=== PATIENT | male | born 1975 | race Caucasian/White ===

== ENCOUNTER 2018-03-28 15:21 | Outpatient (REF) | payer MEDICAID, SELFPAY ==
[2018-03-28 18:32] LABS: Anion Gap 11.8 mmol/L (3-11); BUN 13 mg/dL (7-18); CO2 29.2 mmol/L (21.0-32.0); CREATININE 0.93 mg/dL (0.70-1.30); Calcium 10.2 mg/dL (8.5-10.1); Chloride 100 mmol/L (98-107); Glucose 165 mg/dL (70-100); Potassium 3.2 mmol/L (3.5-5.1); Sodium 141 mmol/L (136-145)
== END 2018-03-28 15:41 ==
LOC: NCHCN 15:21
PROVIDERS: PCP Family Medicine; Visit Provider Family Medicine
DX: I10 Essential (primary) hypertension (principal)
CPT/HCPCS: 80048

== ENCOUNTER 2018-04-10 02:23 | Outpatient (CLI) | payer MEDICAID, SELFPAY ==
--- NOTE | 2018-04-10 21:37 | PFT_ITS ---
DATE OF SERVICE: 04/10/18 REQUESTING PROVIDER: Jose Clement M.D. Spirometry shows no evidence of obstructive airways disease. No bronchodilator testing was carried out. Lung volumes show no evidence of restriction. Diffusion capacity mildly elevated, even when corrected to alveolar volume. Airways resistance normal. IMPRESSION: While there is no evidence of obstructive airways disease, no bronchodilator testing was carried out. There is also elevated diffusion capacity which can be seen in asthma. Therefore, if the diagnosis of asthma is in question, proceeding with methylcholine challenge testing may prove to be useful. Clinical correlation recommended.
== END 2018-04-10 02:43 ==
PROVIDERS: PCP Family Medicine; Visit Provider Family Medicine
DX: R06.02 Shortness of breath (principal)
CPT/HCPCS: 94150; 94726; 94729; 94010

== ENCOUNTER 2018-04-12 09:34 | Outpatient (REF) | payer MEDICAID, SELFPAY ==
[2018-04-12 13:42] LABS: ALT 42 U/L (12-78); AST 29 U/L (15-37); Albumin 4.4 g/dL (3.4-5.0); Alkaline Phosphatase 90 U/L (46-116); BUN 12 mg/dL (7-18); Bilirubin, Total 0.8 mg/dL (0.2-1.0); CREATININE 0.95 mg/dL (0.70-1.30); Calcium 9.6 mg/dL (8.5-10.1); Chloride 103 mmol/L (98-107); Glucose 87 mg/dL (70-100); Potassium 4.4 mmol/L (3.5-5.1); Sodium 141 mmol/L (136-145); Total Protein 7.7 g/dL (6.4-8.2)
== END 2018-04-12 09:54 ==
LOC: NCHCN 09:34
PROVIDERS: PCP Family Medicine; Visit Provider Family Medicine
DX: E87.6 Hypokalemia (principal); E83.52 Hypercalcemia
CPT/HCPCS: 80053

== ENCOUNTER 2018-11-18 19:18 | Emergency (ER) | payer MEDICAID, SELFPAY ==
[2018-11-18 19:46] VITALS: BP 149/97; PULSE 72; RESP 14; TEMP 36.5; O2SAT 98
--- NOTE | 2018-11-18 20:47 | ED.GENADUL_ITS ---
Discharge Plan Disposition Patient Disposition: HOME Condition: Stable Discharge Details Chief Complaint: Orthopedic Clinical Impression: Hematoma Primary Care Provider: Jose Clement ED Provider: Kvng Bernard Home Meds and New Rx's Prescriptions: No Action omeprazole 40 MG capsule,delayed release(DR/EC) 20 mg PO DAILY RF: 0 fenofibrate nanocrystallized [Tricor] 48 MG tablet 48 mg PO DAILY RF: 0 Fish Oil 1 EACH capsule 1 tab PO DAILY RF: 0 simvastatin 10 MG tablet 10 mg PO DAILY RF: 0 venlafaxine 150 MG capsule,extended release 24hr 150 mg PO BID RF: 0 nortriptyline 10 MG capsule 10 mg PO HS RF: 0 lisinopril 40 MG tablet 40 mg PO DAILY RF: 0 docusate sodium 100 MG capsule 100 mg PO BID Qty: 10 RF: 0 Discharge Instructions Instructions: Hematoma (ED) Additional Instructions: Please use Roldan wrap to provide pressure on left calf. Continue to monitor your symptoms return immediately for any new or worsening signs or symptoms otherwise follow-up with your primary care provider next week for reassessment. Referrals: Jose Clement [Primary Care Provider] - (As needed for reassessment or if not improving) Discharge Data Discharge Date/Time-TO BE ENTERED AT DEPARTURE: 11/18/18 21:45 Medical Decision Making Patient presenting the emergency department for chief complaint of right calf bruising. Patient states 1 week ago he was bent over while stacking wood he thought something bit his calf. Afterwards he noted some bruising that is continued over the past week. Patient denies any chest pain, shortness of breath, fever chills, or other symptoms. Physical exam shows significant br uising and superficial abnormality to the right medial calf. Bedside ultrasound was utilized to visualized venous structures and there is no areas that do not compress but in surrounding area of ecchymosis there is a hematoma noted right next to the associated superficial vein but again no thrombosis is seen within the venous structure and good blood flow is noted. Exam is otherwise unremarkable. I feel more than likely that patient had either minor occult injury or slight structural tear causing hematoma is causing his symptoms. Leg was wrapped in an Roldan wrap and patient was encouraged to use [id number] pain therapy as needed for discomfort. Patient was offered official ultrasound on Tuesday for full definitive examination but at this time he refused and stated he would follow-up with his primary care provider which I feel is appropriate given no obvious signs of DVT on bedside ultrasound. Close return precautions were discussed. After discussion of diagnosis and plan of care patient has no further needs, questions, or concerns and states clear understanding to return to the emergency department for any worsening symptoms. HPI General Mode of arrival: ambulatory . Date/Time Provider Initiated Documentation: 11/18/18 19:50 . Limitations to Documentation: no limitations . Information obtained by: patient . History of Present Illness 43 year old M presents to the emergency department with the chief complaint of right calf pain, described as mild, with intensity rated at 2. Quality is described as aching, and is localized to the right and lower extremity. Patient started experiencing this week(s) (1) and it has been constant. No relieving factors improve symptom(s), No exacerbating factors reported . Patient notes no other symptoms.. Patient did receive the following treatments prior to arrival, none Related Data Home Medications Medication Instructions Recorded Confirmed Fish Oil 1 tab PO DAILY 05/30/14 11/18/18 fenofibrate nanocrystallized 48 mg PO DAILY 05/30/14 11/18/18 [Tricor] omeprazole 20 mg PO DAILY 05/30/14 11/18/18 docusate sodium 100 mg PO BID #10 capsule 05/31/14 11/18/18 lisinopril 40 mg PO DAILY 05/31/14 11/18/18 nortriptyline 10 mg PO HS 05/31/14 11/18/18 simvastatin 10 mg PO DAILY 05/31/14 11/18/18 venlafaxine 150 mg PO BID 05/31/14 11/18/18 Previous Rx's Medication Instructions Recorded docusate sodium 100 mg PO BID #10 capsule 05/31/14 Allergies Allergy/AdvReac Type Severity Reaction Status Date / Time Penicillins Allergy Unverified 11/18/18 19:52 General Stated Complaint: Orthopedic GABBY: 3 Review of Systems Constitutional Constitutional: Denies chills, Denies fever(s) and Denies headache(s) ENT Ears, Nose, Mouth, and Throat: Denies headache(s) Cardiovascular Cardiovascular: Denies chest pain, Denies irregular heart rhythm, Denies claudication, Denies leg edema and Denies dyspnea Respiratory Respiratory: Denies dyspnea Musculoskeletal Musculoskeletal: Reports as per HPI Neurologic Neurologic: Denies headache(s) and Denies sensory deficit [facility] Surgical History Bilateral Ureter reimplantation Colonoscopy - MAC (07/14/16) EGD - MAC (07/14/16) Spinal Fusion Social History Smoking/Tobacco Use Status: Never Alcohol Intake: current Alcohol Intake frequency: a few times a month Drug use: Never Substance use type: does not use Do you feel safe at home: Yes Do you feel safe in your relationship?: Yes Exam Const General: cooperative, healthy appearing, comfortable and no acute distress Orientation: alert, awake and oriented x3 Resp Effort & Inspection: normal respiratory effort and able to speak in complete sentences Cardio Rate: regular rate Rhythm: regular rhythm Pulses: normal peripheral pulses Neuro General: alert, awake, oriented x3, moves all extremities and no focal motor deficits Extrem General: full ROM, normal capillary refill, normal exam except as noted and no joint enlargement Right lower extremity: lower leg Details: ecchymosis mid lower leg medial Details: single; no tenderness, no palpable cords, edema noted, no abrasions and no lacerations Course Vital Signs Vital signs: Vital Signs Temperature 36.5 C 11/18/18 19:46 Pulse 72 11/18/18 19:46 Respiratory Rate 14 11/18/18 19:46 Blood Pressure 149/97 H 11/18/18 19:46 Pulse Oximetry 98 11/18/18 19:46 Temperature 36.5 C 11/18/18 19:46 Temperature Source Tympanic 11/18/18 19:46 Pulse 72 11/18/18 19:46 Respiratory Rate 14 11/18/18 19:46 Respiratory Effort Non-Labored 11/18/18 19:53 Blood Pressure 149/97 H 11/18/18 19:46 Pulse Oximetry 98 11/18/18 19:46 Oxygen Delivery Method Room Air 11/18/18 19:46 Oxygen Flow Rate 0 11/18/18 19:46 Pain Level 2 11/18/18 19:53
[2018-11-18 21:17] VITALS: BP 149/97; PULSE 72; RESP 14; O2SAT 98
== END 2018-11-18 21:45 | disposition home or self-care (01) ==
PROVIDERS: Emergency Provider Nurse Practitioner Family; PCP Family Medicine
DX: S80.12XA Contusion of left lower leg, initial encounter (principal); X58.XXXA Exposure to other specified factors, initial encounter
CPT/HCPCS: 99282

== ENCOUNTER 2019-02-27 17:05 | Emergency (ER) | payer MEDICAID, SELFPAY ==
[2019-02-27 17:09] VITALS: BP 148/78; PULSE 87; TEMP 36.6; O2SAT 97
--- NOTE | 2019-02-27 17:20 | W.ED.GENAD ---
Discharge Plan Disposition Patient Disposition: HOME Condition: Good Discharge Details Chief Complaint: RespSymp Clinical Impression: Pneumonia, Asthma exacerbation Primary Care Provider: Jose Clement ED Provider: Silvina Benson Home Meds and New Rx's Prescriptions: New doxycycline hyclate 100 mg capsule 100 mg PO BID 7 Days Qty: 14 RF: 0 prednisone 50 mg tablet 50 mg PO DAILY 5 Days Qty: 5 RF: 0 albuterol sulfate 90 mcg/actuation HFA aerosol inhaler 2 puff IH Q6H PRN (Reason: shortness of breath or wheezing) Qty: 6.7 RF: 0 Continued omeprazole 40 MG capsule,delayed release(DR/EC) 20 mg PO DAILY RF: 0 fenofibrate nanocrystallized [Tricor] 48 MG tablet 48 mg PO DAILY RF: 0 Fish Oil 1 EACH capsule 1 tab PO DAILY RF: 0 simvastatin 10 MG tablet 10 mg PO DAILY RF: 0 venlafaxine 150 MG capsule,extended release 24hr 150 mg PO BID RF: 0 nortriptyline 10 MG capsule 10 mg PO HS RF: 0 lisinopril 40 MG tablet 40 mg PO DAILY RF: 0 docusate sodium 100 MG capsule 100 mg PO BID Qty: 10 RF: 0 Discharge Instructions Instructions: Asthma (ED), Pneumonia (ED) Additional Instructions: Encourage water intake. Tylenol and/or Ibuprofen as needed for discomfort. Please take the antibiotics as prescribed (doxycycline), even if symptoms improve please take the entire course. Please take the prednisone daily as prescribed. Albuterol inhaler as needed, please use as you have historically. If you develop fevers/chills, difficulty breathing, shortness of breath or other new/worsening symptoms please seek care urgently once again. Otherwise, please follow up with primary care at the end of the week if not completely improved. Referrals: Jose Clement [Primary Care Provider] - Discharge Data Discharge Date/Time-TO BE ENTERED AT DEPARTURE: 02/27/19 18:25 Medical Decision Making Patient is a 43 year old male with hx of asthma, presenting today with c/c of cough and SOB x 1 week. States that started as a basic cold and that cough has progressively worsened. Denies ear pain, endorses nasal congestion, chest congestion, sore throat. No fevers/chills .Has been responding well to inhaler. Denies CP. No GI upset. On exam, patient is resting comfortably. Oxygenating well, no labored breathing. Patient has expiratory wheezes in BUL. Course in RLL, concerned for pneumonia. Will obtain cxr. FINDINGS: Lungs: The lung volumes are low. No consolidation. Pleural space: Unremarkable. No pleural effusion. No pneumothorax. Heart/Mediastinum: Unremarkable. No cardiomegaly. Bones/joints: Unremarkable. IMPRESSION: Low lung volumes without evidence of pneumonia. Discussed these findings with the patient. Despite the normal chest x-ray, I remain concerned for pneumonia based on clinical exam findings and worsening history. Plan to treat with doxycycline. As he was wheezing has been experiencing increase in his asthma symptoms, will also place the patient on oral prednisone. He was given return precautions. Advise follow-up with primary care get of the week. All questions concerns were addressed and is agreement this plan. HPI General Mode of arrival: ambulatory. Date/Time Provider Initiated Documentation: 02/27/19 17:19. Limitations to Documentation: no limitations. Information obtained by: patient and RN notes reviewed. History of Present Illness 43 year old M presents to the emergency department with the chief complaint of cough, SOB x 1 week, described as moderate, with intensity rated at 1 (no pain). Patient started experiencing this week(s) (1) and it has been constant. No relieving factors improve symptom(s), Other factors that worsen symptoms (going into the cold) . Patient notes cough and shortness of breath; denies chest pain, diaphoresis, fever/chills, headaches, nausea/vomiting, rash and weakness. Patient did receive the following treatments prior to arrival, none Related Data Home Medications Medication Instructions Recorded Confirmed Fish Oil 1 tab PO DAILY 05/30/14 02/27/19 fenofibrate nanocrystallized 48 mg PO DAILY 05/30/14 02/27/19 [Tricor] omeprazole 20 mg PO DAILY 05/30/14 02/27/19 docusate sodium 100 mg PO BID #10 capsule 05/31/14 02/27/19 lisinopril 40 mg PO DAILY 05/31/14 02/27/19 nortriptyline 10 mg PO HS 05/31/14 02/27/19 simvastatin 10 mg PO DAILY 05/31/14 02/27/19 venlafaxine 150 mg PO BID 05/31/14 02/27/19 albuterol sulfate 2 puff IH Q6H PRN #6.7 gm 02/27/19 doxycycline hyclate 100 mg PO BID 7 Days #14 cap 02/27/19 prednisone 50 mg PO DAILY 5 Days #5 tab 02/27/19 Previous Rx's Medication Instructions Recorded docusate sodium 100 mg PO BID #10 capsule 05/31/14 albuterol sulfate 2 puff IH Q6H PRN #6.7 gm 02/27/19 doxycycline hyclate 100 mg PO BID 7 Days #14 cap 02/27/19 prednisone 50 mg PO DAILY 5 Days #5 tab 02/27/19 Allergies Allergy/AdvReac Type Severity Reaction Status Date / Time Penicillins Allergy Unverified 02/27/19 17:15 General Stated Complaint: RespSymp GABBY: 4 Review of Systems Constitutional Constitutional: Reports as per HPI, Denies chills, Reports fatigue, Denies fever(s), Denies headache(s) and Denies poor appetite Eyes Eyes: Reports as per HPI, Denies eye discharge and Denies irritation ENT Ears, Nose, Mouth, and Throat: Reports as per HPI and Denies headache(s) Cardiovascular Cardiovascular: Reports as per HPI, Denies chest pain and Reports dyspnea (with cough, reports feels similar to asthma exacerbation in the past) Respiratory Respiratory: Reports as per HPI, Reports chest congestion, Reports cough, Denies hemoptysis, Denies excessive phlegm production, Denies pain on inspiration, Denies pain with cough, Reports dyspnea (with cough, reports feels similar to asthma exacerbation in the past) and Reports wheezing Gastrointestinal Gastrointestinal: Reports as per HPI, Denies abdominal pain, Denies change in bowel habits, Denies nausea and Denies vomiting Integumentary/Breasts Skin/Breast: Reports as per HPI and Denies rash Neurologic Neurologic: Reports as per HPI and Denies headache(s) Endocrine Endocrine: Reports fatigue Allergic/Immunologic Allergic/Immunologic: Reports wheezing PFSH Surgical History Bilateral Ureter reimplantation Colonoscopy - MAC (07/14/16) EGD - MAC (07/14/16) Spinal Fusion Social History Smoking/Tobacco Use Status: Never Alcohol Intake: current Alcohol Intake frequency: a few times a month Drug use: Never Substance use type: does not use Do you feel safe at home: Yes Do you feel safe in your relationship?: Yes Exam Const General: cooperative, healthy appearing, comfortable, no acute distress, well developed and well groomed Nutritional Appearance: average body habitus and well nourished Orientation: alert and awake [facility] Head: normal to inspection, normocephalic and atraumatic Ears: hearing grossly normal bilaterally, external ears normal and TM's normal bilaterally General nose exam: external nose normal and nares normal Face and sinus: normal facial exam, sinuses nontender and face symmetric Mouth: oral mucosae normal, lip normal, tongue normal, oropharynx normal and moist mucous membranes Teeth and gingiva: dentition normal Throat: posterior oropharynx normal, tonsils normal and uvula midline Eyes General: appearance normal, both eyes and all related structures Neck Neck: normal visual inspection, full ROM, no lymphadenopathy and no meningeal signs Resp Effort & Inspection: normal respiratory effort, able to speak in complete sentences and no respiratory distress Auscultation: crackles (RLL), no rales, no rhonchi and wheezes expiratory wheezes and scattered wheezes Cardio Rate: regular rate Rhythm: regular rhythm Heart Sounds: S1 normal and S2 normal Skin General skin exam: no rashes or lesions noted Neuro General: alert and awake Cognition: normal cognition Speech: speech normal Gait: normal gait Psych Appearance: grossly normal and well kempt Mental Status: mental status grossly normal Speech and Movement: speech and movement normal Course Vital Signs Vital signs: Vital Signs Temperature 36.6 C 02/27/19 17:09 Pulse 87 02/27/19 17:09 Blood Pressure 148/78 H 02/27/19 17:09 Pulse Oximetry 97 02/27/19 17:09 Temperature 36.6 C 02/27/19 17:09 Temperature Source Skin 02/27/19 17:09 Pulse 87 02/27/19 17:09 Blood Pressure 148/78 H 02/27/19 17:09 Blood Pressure Position Sitting 02/27/19 17:09 Pulse Oximetry 97 02/27/19 17:09 Oxygen Delivery Method Room Air 02/27/19 17:09 Oxygen Flow Rate 0 02/27/19 17:09
--- NOTE | 2019-02-27 17:55 | DI.RAD_ITS ---
EXAM: XR CHEST 2V PA LATERAL INDICATION: SOB, cough. COMPARISON: ABD FLAT UPRIGHT PA CHEST from 05/30/2014 TECHNIQUE: 2D digital imaging was performed. FINDINGS: There is poor inspiration. Heart size and pulmonary vasculature are within normal limits. The lungs are clear. No pleural effusion or pneumothorax. Bones are unremarkable. IMPRESSION: No acute pulmonary process.
--- NOTE | 2019-02-27 18:15 | DI.VRAD_ITS ---
PROCEDURE INFORMATION: Exam: XR Chest, 2 Views Exam date and time: 02/27/2019 5:20 PM Age: 43 years old Clinical indication: Cough and shortness of breath TECHNIQUE: Imaging protocol: XR of the chest Views: 2 views. COMPARISON: CR ABD FLAT UPRIGHT PA CHEST 05/30/2014 9:10 PM FINDINGS: Lungs: The lung volumes are low. No consolidation. Pleural space: Unremarkable. No pleural effusion. No pneumothorax. Heart/Mediastinum: Unremarkable. No cardiomegaly. Bones/joints: Unremarkable. IMPRESSION: Low lung volumes without evidence of pneumonia. Dictated and Authenticated by: Terrie Pedroza MD. Ordering:MOIRA Cool MD
== END 2019-02-27 18:25 | disposition home or self-care (01) ==
PROVIDERS: Emergency Provider Physician Assistant; PCP Family Medicine
DX: J45.901 Unspecified asthma with (acute) exacerbation (principal); J18.9 Pneumonia, unspecified organism; J02.9 Acute pharyngitis, unspecified
CPT/HCPCS: 99283; 71046; 99284

== ENCOUNTER 2019-06-22 07:16 | Outpatient (CLI) | payer MEDICAID, SELFPAY ==
[2019-06-22 16:12] LABS: BUN 11 mg/dL (7-18); CREATININE 0.86 mg/dL (0.70-1.30); Calcium 9.1 mg/dL (8.5-10.1); Chloride 102 mmol/L (98-107); Glucose 140 mg/dL (74-106); Potassium 3.9 mmol/L (3.5-5.1); Sodium 138 mmol/L (136-145)
[2019-06-27 03:16] LABS: Testosterone, Total 313 ng/dL (240-950)
== END 2019-06-22 07:36 ==
PROVIDERS: PCP Family Medicine; Visit Provider Family Medicine
DX: I10 Essential (primary) hypertension (principal); N52.9 Male erectile dysfunction, unspecified; F33.1 Major depressive disorder, recurrent, moderate
CPT/HCPCS: 36415; 80048; 84403

== ENCOUNTER 2019-11-26 17:41 | Outpatient (REF) | payer MEDICAID, SELFPAY ==
[2019-11-26 18:35] LABS: HCT 44.2 % (40.0-50.0); HGB 15.5 g/dL (13.5-17.5); MCH 28.8 pg (27.0-33.0); MCHC 35.1 % (32.0-36.0); MPV 11.2 fL (8.0-11.0); Platelet Count 285 10^3/uL (130-400); RBC 5.39 10^6/uL (4.36-5.78); RDW 12.2 % (11.8-14.1); RDW-SD 36.2 fL; WBC 8.47 10^3/uL (4.4-10.8)
[2019-11-26 19:11] LABS: Anion Gap 12.4 mmol/L (3-11); BUN 17 mg/dL (7-18); CO2 26.6 mmol/L (21.0-32.0); CREATININE 1.08 mg/dL (0.70-1.30); Calcium 9.9 mg/dL (8.5-10.1); Chloride 101 mmol/L (98-107); Glucose 93 mg/dL (74-106); Potassium 3.5 mmol/L (3.5-5.1); Sodium 140 mmol/L (136-145); TSH (W/Ref FT4) 1.73 uIU/mL (0.36-3.74); Vitamin B12 330 pg/mL (193-986)
== END 2019-11-26 18:01 ==
LOC: NCHCN 17:41
PROVIDERS: PCP Family Medicine; Visit Provider Family Medicine
DX: F33.1 Major depressive disorder, recurrent, moderate (principal); I10 Essential (primary) hypertension; K29.70 Gastritis, unspecified, without bleeding
CPT/HCPCS: 80048; 85027; 82607; 84443

== ENCOUNTER 2020-03-14 08:46 | Emergency (ER) | payer MEDICAID, SELFPAY ==
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
[2020-03-14 08:49] VITALS: BP 147/96; PULSE 109; RESP 20; TEMP 36.6; O2SAT 98
--- NOTE | 2020-03-14 09:17 | DI.RAD_ITS ---
EXAM: XR ELBOW RT COMPLETE CLINICAL HISTORY: old trauma with persist decreased ROM. TECHNIQUE: 2D digital imaging was performed. COMPARISON: No exams were available for comparison FINDINGS: There no obvious acute fracture lines. However, on the lateral view we note a 10 by 4 millimeter ost eophytic density in the joint cavity anterior to distal humerus. No obvious defect in adjacent paren t bones evident on these 3 images. Radial head appears intact. No obvious osteochondral defects. IMPRESSION: Loose intra-articular body as described above. No obvious acute fracture. DATA REPOSITORY: RADIATION DOSE DELIVERED:
== END 2020-03-14 10:09 | disposition home or self-care (01) ==
LOC: ER 10:05
PROVIDERS: Emergency Provider Physician Assistant; PCP Family Medicine
DX: M77.01 Medial epicondylitis, right elbow (principal); I10 Essential (primary) hypertension
CPT/HCPCS: 90471; 99284; 73080

== ENCOUNTER 2020-06-02 19:09 | Outpatient (REF) | payer MEDICAID, SELFPAY ==
[2020-06-02 18:08] LABS: HCT 44.7 % (40.0-50.0); HGB 15.4 g/dL (13.5-17.5); MCH 28.6 pg (27.0-33.0); MCHC 34.5 % (32.0-36.0); MCV 83.1 fL (80-95); MPV 11.9 fL (8.0-11.0); Platelet Count 271 10^3/uL (130-400); RBC 5.38 10^6/uL (4.36-5.78); RDW 12.4 % (11.8-14.1); RDW-SD 37.4 fL; WBC 7.56 10^3/uL (4.4-10.8)
[2020-06-02 18:29] LABS: ALT 42 U/L (16-63); AST 24 U/L (15-37); Albumin 4.5 g/dL (3.4-5.0); Alkaline Phosphatase 91 U/L (46-116); Anion Gap 11.9 mmol/L (3-11); BUN 12 mg/dL (7-18); Bilirubin, Total 0.4 mg/dL (0.2-1.0); CO2 26.1 mmol/L (21.0-32.0); CREATININE 1.2 mg/dL (0.70-1.30); Calcium 9.9 mg/dL (8.5-10.1); Chloride 105 mmol/L (98-107); Glucose 123 mg/dL (74-106); Potassium 3.2 mmol/L (3.5-5.1); Sodium 143 mmol/L (136-145)
[2020-06-04 09:54] LABS: Hepatitis C Ab w Rflx HCV PCR Negative (Negative)
== END 2020-06-02 19:10 | disposition home or self-care (01) ==
LOC: NCHCN 19:09
PROVIDERS: PCP Family Medicine; Visit Provider Family Medicine
DX: F10.10 Alcohol abuse, uncomplicated (principal); Z11.59 Encounter for screening for other viral diseases
CPT/HCPCS: 80053; 85027; 86803

== ENCOUNTER 2020-09-01 18:28 | Outpatient (REF) | payer MEDICAID, SELFPAY ==
[2020-09-01 20:58] LABS: Anion Gap 11.9 mmol/L (3-11); BUN 10 mg/dL (7-18); CO2 26.1 mmol/L (21.0-32.0); CREATININE 1.1 mg/dL (0.70-1.30); Calcium 9.8 mg/dL (8.5-10.1); Chloride 101 mmol/L (98-107); Glucose 169 mg/dL (74-106); Magnesium 1.8 mg/dL (1.8-2.4); Potassium 3.4 mmol/L (3.5-5.1); Sodium 139 mmol/L (136-145)
== END 2020-09-01 18:29 | disposition home or self-care (01) ==
LOC: NCHCN 18:28
PROVIDERS: PCP Family Medicine; Visit Provider Family Medicine
DX: E87.6 Hypokalemia (principal)
CPT/HCPCS: 80048; 83735

== ENCOUNTER 2020-09-03 12:11 | Outpatient (REF) | payer MEDICAID, SELFPAY ==
[2020-09-03 16:08] LABS: Anion Gap 11.5 mmol/L (3-11); BUN 14 mg/dL (7-18); CO2 26.5 mmol/L (21.0-32.0); CREATININE 1.2 mg/dL (0.70-1.30); Calcium 9.7 mg/dL (8.5-10.1); Chloride 105 mmol/L (98-107); Glucose 119 mg/dL (74-106); Magnesium 1.9 mg/dL (1.8-2.4); Potassium 3.3 mmol/L (3.5-5.1); Sodium 143 mmol/L (136-145)
[2020-09-05 13:56] LABS: COVID-19 RT-PCR UVMMC Result Negative (Negative)
== END 2020-09-03 12:12 | disposition home or self-care (01) ==
LOC: LBN 12:11
PROVIDERS: PCP Family Medicine; Visit Provider Physician Assistant Medical
DX: R10.9 Unspecified abdominal pain (principal); E87.6 Hypokalemia; J06.9 Acute upper respiratory infection, unspecified; Z20.822 Contact with and (suspected) exposure to COVID-19; R82.998 Other abnormal findings in urine
CPT/HCPCS: 80048; U0003; 83735; 87086

== ENCOUNTER 2021-05-19 15:02 | Outpatient (REF) | payer MEDICAID, SELFPAY ==
[2021-05-19 16:41] LABS: HCT 43.4 % (40.0-50.0); HGB 14.8 g/dL (13.5-17.5); MCH 26.8 pg (27.0-33.0); MCHC 34.1 % (32.0-36.0); MCV 78.6 fL (80-95); MPV 11.4 fL (8.0-11.0); Platelet Count 361 10^3/uL (130-400); RBC 5.52 10^6/uL (4.36-5.78); RDW 13.3 % (11.8-14.1); RDW-SD 37.6 fL
[2021-05-19 17:01] LABS: ALT 24 U/L (16-63); AST 16 U/L (15-37); Albumin 4.4 g/dL (3.4-5.0); Alkaline Phosphatase 129 U/L (46-116); Anion Gap 12.3 mmol/L (3-11); BUN 18 mg/dL (7-18); Bilirubin, Total 0.3 mg/dL (0.2-1.0); CO2 26.7 mmol/L (21.0-32.0); CREATININE 1.2 mg/dL (0.70-1.30); Calcium 9.8 mg/dL (8.5-10.1); Chloride 99 mmol/L (98-107); Glucose 132 mg/dL (74-106); Potassium 3.4 mmol/L (3.5-5.1); Sodium 138 mmol/L (136-145); Total Protein 8.3 g/dL (6.4-8.2)
[2021-05-19 18:26] LABS: Bilirubin Negative (Negative); Blood Trace-intact (Negative); Clarity Clear (Clear); Glucose Negative (Negative); Ketones Negative (Negative); Leukocyte Esterase Large (Negative); Nitrite Negative (Negative); Specific Gravity <= 1.005 (1.005-1.025); Urobilinogen 0.2 EU/dL (Up TO 0.2)
[2021-05-19 20:10] LABS: Bacteria Moderate HPF (Negative); C & S Indicated? Yes; Casts Negative LPF (Negative); Crystals Negative HPF (Negative); Epithelial Cells Negative HPF (Negative); Mucus Negative (Negative); RBC Negative HPF (0-2)
== END 2021-05-19 15:03 | disposition home or self-care (01) ==
LOC: NCHCN 15:02
PROVIDERS: PCP Family Medicine; Visit Provider Family Medicine
DX: R35.89 Other polyuria (principal); R31.9 Hematuria, unspecified; F10.10 Alcohol abuse, uncomplicated; E87.6 Hypokalemia
CPT/HCPCS: 80053; 85027; 87077; 81003; 81015; 87086; 87186

== ENCOUNTER 2021-06-24 18:24 | Outpatient (REF) | payer MEDICAID, SELFPAY ==
[2021-06-26 11:11] LABS: COVID-19 RT-PCR UVMMC Result Negative (Negative)
== END 2021-06-24 18:25 | disposition home or self-care (01) ==
LOC: LBN 18:24
PROVIDERS: PCP Family Medicine; Visit Provider Nurse Practitioner Family
DX: Z20.822 Contact with and (suspected) exposure to COVID-19 (principal); R05.8 Other specified cough
CPT/HCPCS: U0003

== ENCOUNTER 2021-07-06 11:15 | Outpatient (REF) | payer MEDICAID, SELFPAY ==
[2021-07-06 18:26] LABS: Iron 62 ug/dL (65-175); Total Iron Binding Capacity 300 ug/dL (250-450); Transferrin Sat 21 % (20-55)
[2021-07-06 18:32] LABS: Anion Gap 8.9 mmol/L (3-11); BUN 21 mg/dL (7-18); CO2 27.1 mmol/L (21.0-32.0); CREATININE 1.7 mg/dL (0.70-1.30); Calculated LDL 103 mg/dL (<100); Chloride 106 mmol/L (98-107); Cholesterol 190 mg/dL (<200); Estimated GFR 43.42 (mL/min/1.73m2); Ferritin 185 ng/mL (26-388); Glucose 103 mg/dL (74-106); HDL Cholesterol 40 mg/dL (40-60); Potassium 4.3 mmol/L (3.5-5.1); Sodium 142 mmol/L (136-145); Triglyceride 239 mg/dL (<150)
== END 2021-07-06 11:16 | disposition home or self-care (01) ==
LOC: NCHCN 11:15
PROVIDERS: PCP Family Medicine; Visit Provider Family Medicine
DX: R71.8 Other abnormality of red blood cells (principal); E87.6 Hypokalemia; E78.5 Hyperlipidemia, unspecified
CPT/HCPCS: 80048; 80061; 82728; 83540; 83550

== ENCOUNTER 2021-07-29 19:09 | Outpatient (REF) | payer MEDICAID, SELFPAY ==
[2021-07-29 16:49] LABS: Bilirubin Negative (Negative); Blood Negative (Negative); Clarity Clear (Clear); Glucose Negative (Negative); Ketones Negative (Negative); Leukocyte Esterase Large (Negative); Nitrite Negative (Negative); Urobilinogen 0.2 EU/dL (Up TO 0.2); pH 6.5 (5-8)
[2021-07-29 16:54] LABS: Bacteria Many HPF (Negative); C & S Indicated? Yes; Casts Negative LPF (Negative); Crystals Negative HPF (Negative); Epithelial Cells Negative HPF (Negative); Mucus Negative (Negative); RBC Negative HPF (0-2); WBC >50 HPF (0-5)
[2021-07-29 17:07] LABS: CREATININE 1.3 mg/dL (0.70-1.30); Estimated GFR 59.17 (mL/min/1.73m2)
== END 2021-07-29 19:10 | disposition home or self-care (01) ==
LOC: NCHCN 19:09
PROVIDERS: PCP Family Medicine; Visit Provider Family Medicine
DX: N28.9 Disorder of kidney and ureter, unspecified (principal); R82.998 Other abnormal findings in urine
CPT/HCPCS: 87077; 81003; 81015; 82565; 87086; 87186

== ENCOUNTER → 2021-09-09 01:28 | Outpatient (CLI) | payer MEDICAID, SELFPAY ==
--- NOTE | 2021-09-09 09:00 | DI.US_ITS ---
Exam(s) US RENAL EXAM: US RENAL CLINICAL HISTORY: NEW RENAL INSUFFICIENCY, N28.9. TECHNIQUE: Garcia scale, color and spectral Doppler were used. COMPARISON: CT UPPER ABD W/WO CONTRAST(P) from 05/31/2014 US ABDOMEN ULTRASOUND (P) from 05/31/2014 FINDINGS: Renal size in cm: Right: 12.5. Left: 14.5. Echogenicity: Normal. Hydronephrosis: Marked bilateral hydronephrosis and hydroureter. Cyst or mass: No. Nephrolithiasis: No. Other findings: None. Bladder:Normal. Ureteral jets: Right: Not visualized on this examination. Left: Not visualized on this examination. Prevoid vol:1603 cc Postvoid vol:1002 cc Prostate: Not visualized on this examination. Renal color flow: Symmetric and within normal limits. IMPRESSION: 1. Significant worsening of the bilateral hydronephrosis/hydroureter since 2014. Further evaluation with a CT scan of the abdomen and pelvis and/or nuclear medicine renal scan is recommended. 2. Large postvoid urinary bladder volume. DATA REPOSITORY:
== END ==
PROVIDERS: PCP Family Medicine; Visit Provider Family Medicine
DX: N13.30 Unspecified hydronephrosis (principal)
CPT/HCPCS: 76770

== ENCOUNTER → 2021-10-01 01:56 | Outpatient (CLI) | payer MEDICAID, SELFPAY ==
--- NOTE | 2021-10-01 10:00 | DI.CT_ITS ---
Exam(s) CT ABDOMEN PELVIS WO/W EXAM: CT ABDOMEN PELVIS WO/W TECHNIQUE: Imaging Protocol: Axial computed tomography images with coronal and sagittal reformatted images were created and reviewed CONTRAST MATERIAL: Intravenous: Omnipaque 350 Contrast volume:94 cc Oral:no COMPARISON: US US RENAL from 09/09/2021 FINDINGS: ABDOMEN: Lung Bases: Normal where visualized. Liver: Normal density. No measurable mass. Scattered tiny cysts. Gallbladder and biliary tract: No radiodense calculus or dilation. Pancreas: Normal density, no abnormal calcifications or inflammatory process. Spleen: Normal. Kidneys: Severe bilateral hydronephrosis causing bilateral renal parenchymal thinning.. The ureters are dilated down to the level of the bladder. There is no evidence of obstructing stone or mass. Th ere is kinking of both proximal ureters. No masses seen. Small cyst lower pole right kidney. Tiny n onobstructing stone lower pole left kidney. Adrenal glands: No masses seen. Lymph nodes: Within normal limits. Abdominal Aorta: Abdominal portion non-dilated. Soft tissues: PELVIS: Bladder: Markedly distended. Mild diffuse wall thickening and trabeculation is well as a few small d iverticula, the largest anteriorly slightly to the right of midline. Bowel: No obstruction or bowel wall thickening. Appendix normal. Peritoneal cavity: No ascites, collection or mesenteric inflammatory response. Soft tissues: Bones: Posterior fusion hardware at L5-S1. Reproductive organs: Within normal limits. Prostate is not enlarged. IMPRESSION: Severe bilateral hydronephrosis and severe bladder distension. No evidence of obstructing stone or m ass. RADIATION DOSE DELIVERED: 3,031.67mGy.cm Total DLP DATA REPOSITORY: All CT scans at this facility are submitted to the National Radiology Data Registry (NRDR) Dose Index Registry (DIR) with the [employer] (A[employer]). RADIATION OPTIMIZATION: All CT scans at this facility use at least one of these dose optimization te chniques: automated exposure control; mA and/or kV adjustment per patient size (includes targeted exa ms where dose is matched to clinical indication); or iterative reconstruction.
[2021-10-01] MEDS: Omnipaque 350 MG/ML 100 ML BTL IV (12:29)
== END ==
PROVIDERS: PCP Family Medicine; Visit Provider Family Medicine
DX: N13.1 Hydronephrosis with ureteral stricture, not elsewhere classified (principal); N32.9 Bladder disorder, unspecified
CPT/HCPCS: 74178; J3490

== ENCOUNTER 2021-11-22 07:46 | Inpatient (IN) | payer MEDICAID, SELFPAY ==
[2021-11-22] VITALS (63 sets, daily range): BP systolic 90–158; BP diastolic 63–116; PULSE 79–126; RESP 16–36; TEMP 36.7–38.8; O2SAT 94–99
[2021-11-22 08:03] LABS: Bilirubin Negative (Negative); Blood Small (Negative); Clarity Cloudy (Clear); Glucose Negative (Negative); Ketones Negative (Negative); Leukocyte Esterase Large (Negative); Nitrite Positive (Negative); Urobilinogen 0.2 EU/dL (Up TO 0.2)
[2021-11-22 08:09] LABS: Bacteria Moderate HPF (Negative); C & S Indicated? Yes; Casts Negative LPF (Negative); Crystals Negative HPF (Negative); Epithelial Cells Rare HPF (Negative); Mucus Negative (Negative); WBC >50 HPF (0-5)
[2021-11-22] MEDS: Normal Saline 1,000 ML 1000 ML IV ×2 (08:35→10:13)
[2021-11-22 08:40] LABS: Lactate 1.5 mmol/L (0.6-1.4)
[2021-11-22 08:42] LABS: Abs Immature Grans 0.06 10^3/uL (0.0-0.06); Absolute Basophil Count 0.04 10^3/uL (0.0-0.2); Absolute Eosinophil Count 0.44 10^3/uL (0.0-0.7); Absolute Lymphocyte Count 0.67 10^3/uL (1.2-3.4); Absolute Monocyte Count 0.97 10^3/uL (0.1-0.8); Absolute Neutrophil Count 9.01 10^3/uL (1.2-6.7); Basophils % 0.4; Eosinophils % 3.9; HCT 41.2 % (40.0-50.0); HGB 13.9 g/dL (13.5-17.5); Immature Grans % 0.5; MCH 28.2 pg (27.0-33.0); MCHC 33.7 % (32.0-36.0); MCV 84 fL (80-95); MPV 10.2 fL (8.0-11.0); Monocytes % 8.7; Neutrophils % 80.5; Platelet Count 225 10^3/uL (130-400); RBC 4.93 10^6/uL (4.36-5.78); RDW 13.3 % (11.8-14.1); RDW-SD 41.1 fL; WBC 11.19 10^3/uL (4.4-10.8)
[2021-11-22 09:03] LABS: ALT 19 U/L (16-63); AST 15 U/L (15-37); Albumin 3.6 g/dL (3.4-5.0); Alkaline Phosphatase 79 U/L (46-116); Anion Gap 9.1 mmol/L (3-11); BUN 15 mg/dL (7-18); Bilirubin, Total 1.1 mg/dL (0.2-1.0); CO2 25.9 mmol/L (21.0-32.0); CREATININE 1.5 mg/dL (0.70-1.30); Calcium 9.2 mg/dL (8.5-10.1); Chloride 100 mmol/L (98-107); Estimated GFR 57.07 (mL/min/1.73m2); Glucose 125 mg/dL (74-106); Magnesium 1.8 mg/dL (1.8-2.4); Potassium 3.1 mmol/L (3.5-5.1); Sodium 135 mmol/L (136-145); Total Protein 7.8 g/dL (6.4-8.2)
[2021-11-22] MEDS: Acetaminophen 500 MG TAB 1000 MG PO (09:09)
[2021-11-22] MEDS: Potassium Chloride 20 MEQ TABCR 40 MEQ PO (09:13)
--- NOTE | 2021-11-22 09:34 | ED.GENADUL_ITS ---
Discharge Plan Disposition Patient Disposition: [facility] INPATIENT Condition: Serious Discharge Details Clinical Impression: Bilateral hydronephrosis, Urinary retention with incomplete bladder emptying, Acute UTI, Sepsis Admit Date/Time: 11/22/21 12:31 Admit Provider: Josué Talbert Attending Provider: Josué Talbert Primary Care Provider: Jose Clement ED Provider: Soheila Clements Discharge Data Discharge Date/Time-TO BE ENTERED AT DEPARTURE: 11/22/21 14:12 Medical Decision Making <CANDACE Tripathi - Last Filed: 11/24/21 08:10> Patient clinically appears well but is tachycardic and febrile with a temp of 103 His urinalysis looks to be positive for urinary tract infection and the fever raising concern for pyelonephritis Given his flank pain and elevated creatinine, will order CT abdomen pelvis noncontrast to exclude obstructive uropathy Medical Records Medical records reviewed: Yes I reviewed the patient's medical records. Lab Data Lab results reviewed: Yes I reviewed the patient's lab results. <Alec Monteiro MD - Last Filed: 11/24/21 18:58> Date: 11/22/21 Time: 10:35 Note: Patient seen, examined, and discussed with CANDACE Clements. CT abd/pelv interpreted by radiology:1. Severe hydronephrosis and hydro ureters in both kidneys and ureters. Both ureters taper close to the bladder. The severe dilatation was present on the prior study September 2021.? Recommend urology consult 2. Distended bladder 18 cm.. Small anterior bladder diverticulum contains a calculus. Series 2, image 104 .? Recommend urology consult I agree with treatment plan as discussed/documented. Plan to treat for complicated uti. Patient to be hospitalized for furhter treatment. HPI <CANDACE Tripathi - Last Filed: 11/24/21 08:10> General Date/Time Provider Initiated Documentation: 11/22/21 08:01 . HPI Narrative: This 46-year-old gentleman with history of urinary retention and bilateral hydronephrosis presents with report of lightheadedness, flank pain, weakness, and chills. He states his symptoms started 2 days ago. He had a Cazares catheter removed on . He states he straight caths daily at baseline and is followed by Dr. Warren. He denies any anterior abdominal pain. He denies any nausea or vomiting. He had decreased interest in food during the course of the illness. He states that he has had pyelonephritis on several occasions and the symptoms are similar. Denies any exacerbating relieving factors. The shot of the pain is an aching sensation. Denies history of ureterolithiasis. Denies any known sick contacts. Denies any cough or shortness of breath. Denies any chest pain. Related Data Home Medications Medication Instructions Recorded Confirmed nortriptyline 10 mg capsule 10 mg PO HS 05/31/14 11/22/21 albuterol sulfate 90 mcg/actuation 2 puff inhalation Q6H PRN 02/27/19 11/22/21 aerosol inhaler shortness of breath or wheezing #6.7 grams amlodipine 10 mg tablet 10 mg PO DAILY 02/04/20 11/22/21 atorvastatin 10 mg tablet 10 mg PO DAILY 02/04/20 11/22/21 losartan 50 mg tablet 50 mg PO DAILY 02/04/20 11/22/21 omega-3 fatty acids 1,000 mg 1,000 mg PO DAILY 02/04/20 11/22/21 capsule tadalafil 20 mg tablet (Cialis) 20 mg PO DAILY PRN 02/04/20 11/22/21 trazodone 100 mg tablet 100 mg PO QHS PRN 02/04/20 11/22/21 venlafaxine 75 mg capsule,extended 75 mg PO DAILY 02/04/20 11/22/21 release 24 hr venlafaxine 150 mg 150 mg PO DAILY 10/23/21 11/22/21 capsule,extended release 24 hr tamsulosin 0.4 mg capsule 0.4 mg PO DAILY #90 caps 11/19/21 11/22/21 docusate sodium 100 mg capsule 100 mg PO BID PRN 11/22/21 11/22/21 Previous Rx's Medication Instructions Recorded albuterol sulfate 90 mcg/actuation 2 puff inhalation Q6H PRN 02/27/19 aerosol inhaler shortness of breath or wheezing #6.7 grams tamsulosin 0.4 mg capsule 0.4 mg PO DAILY #90 caps 11/19/21 Allergies Allergy/AdvReac Type Severity Reaction Status Date / Time Penicillins Allergy Unverified 11/22/21 07:54 General Stated Complaint: Urinary GABBY: 3 Review of Systems <CANDACE Tripathi Last Filed: 11/24/21 08:10> All systems reviewed & are unremarkable except as noted in HPI and below PFSH <CANDACE Tripathi Last Filed: 11/24/21 08:10> All Active Problems (Updated 11/24/21 @ 14:22 by Carine Prince MD) Discharge planning issues (Acute) DVT prophylaxis (Acute) Acute UTI (Acute) Sepsis (Acute) Complicated UTI (urinary tract infection) (Acute) Urinary retention with incomplete bladder emptying (Acute) Bilateral hydronephrosis (Chronic) Medical History Erectile dysfunction Gastritis HLD (hyperlipidemia) HTN (hypertension) Intermittent asthma Lumbar spondylosis Major depression Right lateral epicondylitis Surgical History Bilateral Ureter reimplantation Colonoscopy - MAC (07/14/16) EGD - MAC (07/14/16) Spinal Fusion Social History Smoking/Tobacco Use Status: Never Smoking risk assessment performed?: Yes Alcohol Intake: current Alcohol Intake frequency: other Alcohol type: beer Drug use: Never Substance use type: does not use Details: Drinks roughly a 12 pack every other day Do you feel safe at home: Yes Do you feel safe in your relationship?: Yes Exam <CANDACE Tripathi - Last Filed: 11/24/21 08:10> Const General: cooperative and comfortable HENMT Mouth: oral mucosae normal Eyes Sclera: sclerae normal Resp Effort & Inspection: normal respiratory effort Auscultation: clear to auscultation bilaterally Cardio Rate: tachycardic Rhythm: regular rhythm Heart Sounds: no murmurs GI Other: Bilateral flank tenderness, no abdominal bruit or pulsatile mass Skin General skin exam: no rashes or lesions noted Neuro General: patient alert and patient oriented x3 Course <CANDACE Tripathi Last Filed: 11/24/21 08:10> Vital Signs Vital signs: Vital Signs Temperature 36.7 C 11/22/21 07:48 Pulse 126 H 11/22/21 07:48 Respiratory Rate 18 11/22/21 07:48 Blood Pressure 149/100 H 11/22/21 07:48 Pulse Oximetry 97 11/22/21 07:48 Temperature 36.7 C 11/22/21 07:48 Temperature Source Oral 11/22/21 07:48 Pulse 126 H 11/22/21 07:48 Respiratory Rate 18 11/22/21 07:48 Blood Pressure 149/100 H 11/22/21 07:48 Blood Pressure Position Sitting 11/22/21 07:48 Pulse Oximetry 97 11/22/21 07:48 Oxygen Delivery Method Room Air 11/22/21 07:48 Oxygen Flow Rate 0 11/22/21 07:48 Pain Level 9 11/22/21 09:09 Lab/Test Results Lab/Test Results: 11/22/21 09:25 Blood Blood Culture - Pending 11/22/21 08:30 Blood Blood Culture - Pending 11/22/21 07:50 Urine - Reflex from Ua Urine Culture - Pending Laboratory Tests Range/Units 11/22/21 11/22/21 11/22/21 07:50 08:17 08:30 WBC (4.4-10.8) 10^3/uL RBC (4.36-5.78) 10^6/uL Hgb (13.5-17.5) g/dL Hct (40.0-50.0) % MCV (80-95) fL MCH (27.0-33.0) pg MCHC (32.0-36.0) % RDW (11.8-14.1) % Plt Count (130-400) 10^3/uL MPV (8.0-11.0) fL Immature Gran % Neutrophils % Lymphocytes % Monocytes % Eosinophils % Basophils % Nucleated RBC % (0.0-0.3) % Absolute Neutrophils (1.2-6.7) 10^3/uL Absolute Lymphocytes (1.2-3.4) 10^3/uL Absolute Monocytes (0.1-0.8) 10^3/uL Absolute Eosinophils (0.0-0.7) 10^3/uL Absolute Basophils (0.0-0.2) 10^3/uL VBG Lactate (0.6-1.4) mmol/L Sodium (136-145) mmol/L 135 L Potassium (3.5-5.1) mmol/L 3.1 L Chloride (98-107) mmol/L 100 Carbon Dioxide (21.0-32.0) mmol/L 25.9 Anion Gap (3-11) mmol/L 9.1 BUN (7-18) mg/dL 15 Creatinine (0.70-1.30) mg/dL 1.5 H Est GFR (CKD-EPI 2020) (mL/min/1.73m2) 57.07 Glucose (74-106) mg/dL 125 H Calcium (8.5-10.1) mg/dL 9.2 Magnesium Cancelled 1.8 Total Bilirubin (0.2-1.0) mg/dL 1.1 H AST (15-37) U/L 15 ALT (16-63) U/L 19 Alkaline Phosphatase (46-116) U/L 79 Total Protein (6.4-8.2) g/dL 7.8 Albumin (3.4-5.0) g/dL 3.6 Urine Color (Yellow) Yellow Urine Clarity (Clear) Cloudy Urine pH (5-8) 7.0 Ur Specific [place] (1.005-1.025) 1.010 Urine Protein (Negative) mg/dL Negative Urine Ketones (Negative) mg/dL Negative Urine Blood (Negative) Small H Urine Nitrite (Negative) Positive H Urine Bilirubin (Negative) Negative Urine Urobilinogen (Up TO 0.2) EU/dL 0.2 Ur Leukocyte Esterase (Negative) Large H Urine RBC (0-2) HPF 5-10 H Urine WBC (0-5) HPF >50 H Ur Epithelial Cells (Negative) HPF Rare Urine Crystals (Negative) HPF Negative Urine Bacteria (Negative) HPF Moderate Urine Casts (Negative) LPF Negative Urine Mucus (Negative) Negative Ur Culture Indicated? Yes Urine Glucose (Negative) mg/dL Negative Range/Units 11/22/21 11/22/21 08:30 08:30 WBC (4.4-10.8) 10^3/uL 11.19 H RBC (4.36-5.78) 10^6/uL 4.93 Hgb (13.5-17.5) g/dL 13.9 Hct (40.0-50.0) % 41.2 MCV (80-95) fL 84 MCH (27.0-33.0) pg 28.2 MCHC (32.0-36.0) % 33.7 RDW (11.8-14.1) % 13.3 Plt Count (130-400) 10^3/uL 225 MPV (8.0-11.0) fL 10.2 Immature Gran % 0.5 Neutrophils % 80.5 Lymphocytes % 6.0 Monocytes % 8.7 Eosinophils % 3.9 Basophils % 0.4 Nucleated RBC % (0.0-0.3) % 0.0 Absolute Neutrophils (1.2-6.7) 10^3/uL 9.01 H Absolute Lymphocytes (1.2-3.4) 10^3/uL 0.67 L Absolute Monocytes (0.1-0.8) 10^3/uL 0.97 H Absolute Eosinophils (0.0-0.7) 10^3/uL 0.44 Absolute Basophils (0.0-0.2) 10^3/uL 0.04 VBG Lactate (0.6-1.4) mmol/L 1.5 H Sodium (136-145) mmol/L Potassium (3.5-5.1) mmol/L Chloride (98-107) mmol/L Carbon Dioxide (21.0-32.0) mmol/L Anion Gap (3-11) mmol/L BUN (7-18) mg/dL Creatinine (0.70-1.30) mg/dL Est GFR (CKD-EPI 2020) (mL/min/1.73m2) Glucose (74-106) mg/dL Calcium (8.5-10.1) mg/dL Magnesium Total Bilirubin (0.2-1.0) mg/dL AST (15-37) U/L ALT (16-63) U/L Alkaline Phosphatase (46-116) U/L Total Protein (6.4-8.2) g/dL Albumin (3.4-5.0) g/dL Urine Color (Yellow) Urine Clarity (Clear) Urine pH (5-8) Ur Specific [place] (1.005-1.025) Urine Protein (Negative) mg/dL Urine Ketones (Negative) mg/dL Urine Blood (Negative) Urine Nitrite (Negative) Urine Bilirubin (Negative) Urine Urobilinogen (Up TO 0.2) EU/dL Ur Leukocyte Esterase (Negative) Urine RBC (0-2) HPF Urine WBC (0-5) HPF Ur Epithelial Cells (Negative) HPF Urine Crystals (Negative) HPF Urine Bacteria (Negative) HPF Urine Casts (Negative) LPF Urine Mucus (Negative) Ur Culture Indicated? Urine Glucose (Negative) mg/dL Critical Care Time <CANDACE Tripathi - Last Filed: 11/24/21 08:10> Critical Care Time Critical Care Time: Yes Total Critical Care Time: 45 Attestation: iv antibiotics, blood work, diagnostic imaging review, iv fluids and antiyretics, urology consult [facility] [place], hospitalist consult and admission
[2021-11-22] MEDS: cefTRIAXone 2 GM/50 ML BAG IVPB (09:39)
[2021-11-22 09:44] LABS: COVID-19 PCR Negative (Negative); Influenza A PCR Negative (Negative); Influenza B PCR Negative (Negative); RSV PCR Negative (Negative)
--- NOTE | 2021-11-22 10:26 | DI.CT_ITS ---
Exam(s) CT ABDOMEN PELVIS WO EXAM: CT ABDOMEN PELVIS WO INDICATION: flank pain, fever. COMPARISON: CT UPPER ABD W/WO CONTRAST(P) from 05/31/[address] ABDOMEN PELVIS WO/W from 10/01/2021 TECHNIQUE: CT examination was performed without contrast administration. FINDINGS: Images obtained through the lung bases are unremarkable. Visualized portions of the liver and splee n appear intact except for a tiny splenic calcification and a less than 1 cm in diameter low-attenuat ion right lobe hepatic lesion too small to characterize period. Visualized portions of the pancreas are unremarkable. Gallbladder and bile ducts are CT normal. Abdominal aorta is of normal diameter. No significant abdominal wall hernia. No significant abdominal or pelvic adenopathy. Adrenals appear unchanged from prior studies with a small left adrenal stable nodule period. There is severe bilateral hydronephrosis and hydroureter to the level just proximal to the urinary bl adder. Urinary bladder is distended. Bladder trabeculation contains calcification. These findings are unchanged from prior CT of October 01.. No ureteral dilatation or calcification identified. Urinary bladder is unremarkable in appearance. IMPRESSION: Severe bilateral hydronephrosis and hydroureter and distention of urinary bladder, no change in appea coty from October 01 study. RADIATION DOSE DELIVERED: 992.71mGy.cm DLP 992.71mGy.cm Total DLP !Error CTDIvol DATA REPOSITORY: All CT scans at this facility are submitted to the National Radiology Data Registry (NRDR) Dose Index Registry (DIR) with the [employer] (ACR). RADIATION OPTIMIZATION: All CT scans at this facility use at least one of these dose optimization te chniques: automated exposure control; mA and/or kV adjustment per patient size (includes targeted exa ms where dose is matched to clinical indication); or iterative reconstruction.
--- NOTE | 2021-11-22 10:29 | DI.RAD_ITS ---
Exam(s) XR CHEST 1V IN DI DEPT EXAM: XR CHEST 1V IN DI DEPT CLINICAL HISTORY: fever, single view. TECHNIQUE: 2D digital imaging was performed. COMPARISON: CR,XR XR CHEST 2V PA LATERAL from 02/27/2019 FINDINGS: LUNGS: Clear. No pleural abnormality seen. HEART: Normal. MEDIASTINUM: Normal. OTHER FINDINGS: None. IMPRESSION: No acute pulmonary findings. DATA REPOSITORY: RADIATION DOSE DELIVERED: Total DLP
--- NOTE | 2021-11-22 10:44 | DI.VRAD_ITS ---
PROCEDURE INFORMATION: Exam: CT Abdomen And Pelvis Without Contrast Exam date and time: 11/22/2021 10:25 AM Age: 46 years old Clinical indication: Abdominal pain; Generalized TECHNIQUE: Imaging protocol: Computed tomography of the abdomen and pelvis without contrast. Radiation optimization: All CT scans at this facility use at least one of these dose optimization techniques: automated exposure control; mA and/or kV adjustment per patient size (includes targeted exams where dose is matched to clinical indication); or iterative reconstruction. COMPARISON: CT ABDOMEN PELVIS WO/W 10/01/2021 10:28 AM FINDINGS: Liver: Normal. No mass. Gallbladder and bile ducts: Normal. No calcified stones. No ductal dilation. Pancreas: Normal. No ductal dilation. Spleen: Normal. No splenomegaly. Adrenal glands: Normal. No mass. Kidneys and ureters: Severe hydronephrosis and hydro ureters in both kidneys and ureters. Both ureters taper close to the bladder. The severe dilatation was present on the prior study September 2021. Stomach and bowel: Unremarkable. No obstruction. No mucosal thickening. Appendix: No evidence of appendicitis. Intraperitoneal space: Unremarkable. No free air. No significant fluid collection. Vasculature: Unremarkable. No abdominal aortic aneurysm. Lymph nodes: Unremarkable. No enlarged lymph nodes. Urinary bladder: Distended bladder 18 cm.. Small anterior bladder diverticulum contains a calculus. Series 2, image 104 . Reproductive: Unremarkable as visualized. Bones/joints: Internal fixation device at L5/S1 Soft tissues: Unremarkable. IMPRESSION: 1. Severe hydronephrosis and hydro ureters in both kidneys and ureters. Both ureters taper close to the bladder. The severe dilatation was present on the prior study September 2021. Recommend urology consult 2. Distended bladder 18 cm.. Small anterior bladder diverticulum contains a calculus. Series 2, image 104 . Recommend urology consult Dictated and Authenticated by: Brett Horn MD. Ordering:JORGE Parnell MD
--- NOTE | 2021-11-22 10:45 | DI.VRAD_ITS ---
PROCEDURE INFORMATION: Exam: XR Chest Exam date and time: 11/22/2021 10:28 AM Age: 46 years old Clinical indication: Fever TECHNIQUE: Imaging protocol: Radiologic exam of the chest. Views: 1 view. COMPARISON: CR XR CHEST 2V PA LATERAL 02/27/2019 5:55 PM FINDINGS: Lungs: Unremarkable. No consolidation. Pleural spaces: Unremarkable. No pleural effusion. No pneumothorax. Heart/Mediastinum: Unremarkable. No cardiomegaly. Bones/joints: Unremarkable. IMPRESSION: No acute findings. A Dictated and Authenticated by: Brett Horn MD. Ordering:JORGE Parnell MD
[2021-11-22] MEDS: Lidocaine 2% Jelly 11 ML SYR UR (11:51)
--- NOTE | 2021-11-22 13:00 | W.PM.HP.N ---
Date of service: 11/22/21 Time of Service: 13:00 Assessment and Plan Assessment and plan (1) Urinary retention with incomplete bladder emptying: Status: Acute Assessment and plan: It would seem that patient has inability to generate adequate pressure to empty his bladder and has a lack of sensation of fullness of his bladder. Given his prior history of DJD and previous discectomy and fusion of his spine it may be that he has some chronic nerve damage from his spine causing a neurogenic bladder. We will leave the Taylor catheter in and have Dr. Warren consult on the case tomorrow morning. Consideration will be given for MRIs of his lumbosacral spine. We will treat him empirically for complicated UTI with Rocephin 2 g daily (2) Bilateral hydronephrosis: Status: Acute (3) Complicated UTI (urinary tract infection): Status: Acute Assessment and plan: Rocephin 2 gm daily, modify based on urine cultures. 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 Patient has trouble sensing when his bladder is full and voids small amounts of urine. He has been followed by Dr. Warren for this problem since 10/09. patient had placement of taylor catheter at that visit to alleviate his hydroureters/hydronephrosis. he followed up w/ Dr. Warren on 10/23 when repeat point of care ultrasound revealed improvment in his hydroureters and hydronphrosis. Taylor was left in until 11/19 when he had urodynamic study done by Dr. Warren in which EMG was performed of the detrussor muscle and catheter was placed in the rectum and the urinary bladder to allow for calculation of the pressure which the detrussor muscle needed to generate (difference of intraabdominal/rectal pressure and intrabladder pressure). His detrussor EMG showed adequate function and detrussor muscle pressure generation was 67 cm however w/ filling of his bladder to 800 mL he did not have any sense of need to void and he was only able to void small amounts around the catheter. His taylor cathetery was taken out and he was instructed to perform timed voids w/ intermittent self catheterization. In the interim he developed chills, rigors, fever and back pain beginning 2 night ago. He denies any hematuria or foul urine. Workup in the ER included renal CT of abdomen and pelvis and demonstrated: IMPRESSION: 1. Severe hydronephrosis and hydro ureters in both kidneys and ureters. Both ureters taper close to the bladder. The severe dilatation was present on the prior study September 2021.? Recommend urology consult 2. Distended bladder 18 cm.. Small anterior bladder diverticulum contains a calculus. Series 2, image 104 . Patient's labs were consistent w/ complicated UTI/pyelonephritis. Patient admits to having bilateral flank pain on arrival to the ER but since placement of the taylor and drainage of 4800 mL he has felt much better. He is febrile w/ temp of 38.5 and has WBC 11,000 and UA was consistent w/ UTI (leukocytes, red cells, bacteria and nitrites). He was started on Rocephin 2 gm. [facility] [place] consulted by the ED as Dr. Warren was unavailable today. They did not feel that his bilateral hydroureter/hydronephrosis necessitated transfer for nephrostomy tubes as long as placement of taylor catheter alleviated the obstruction and urology was available tomorrow. Patient is now admitted for parenteral antibiotics and taylor and urology consult. Review of Systems All systems reviewed & are unremarkable except as noted in HPI and below PFSH All Active Problems (Updated 11/22/21 @ 16:20 by Josué Talbert MD) Complicated UTI (urinary tract infection) (Acute) Urinary retention with incomplete bladder emptying (Acute) Bilateral hydronephrosis (Acute) Medical History Erectile dysfunction Gastritis HLD (hyperlipidemia) HTN (hypertension) Intermittent asthma Lumbar spondylosis Major depression Right lateral epicondylitis Surgical History Bilateral Ureter reimplantation Colonoscopy - MAC (07/14/16) EGD - MAC (07/14/16) Spinal Fusion Social History Smoking/Tobacco Use Status: Never Smoking risk assessment performed?: Yes Alcohol Intake: current Alcohol Intake frequency: other Alcohol type: beer Drug use: Never Substance use type: does not use Details: Drinks roughly a 12 pack every other day Do you feel safe at home: Yes Do you feel safe in your relationship?: Yes Meds Allergies and Home Medications Allergies Allergy/AdvReac Type Severity Reaction Status Date / Time Penicillins Allergy Unverified 11/22/21 07:54 Home Medications Medication Instructions Recorded Confirmed Type nortriptyline 10 mg capsule 10 mg PO HS 05/31/14 11/22/21 History albuterol sulfate 90 mcg/actuation 2 puff inhalation Q6H PRN 02/27/19 11/22/21 Rx aerosol inhaler shortness of breath or wheezing #6.7 grams amlodipine 10 mg tablet 10 mg PO DAILY 02/04/20 11/22/21 History atorvastatin 10 mg tablet 10 mg PO DAILY 02/04/20 11/22/21 History losartan 50 mg tablet 50 mg PO DAILY 02/04/20 11/22/21 History omega-3 fatty acids 1,000 mg 1,000 mg PO DAILY 02/04/20 11/22/21 History capsule tadalafil 20 mg tablet (Cialis) 20 mg PO DAILY PRN 02/04/20 11/22/21 History trazodone 100 mg tablet 100 mg PO QHS PRN 02/04/20 11/22/21 History venlafaxine 75 mg capsule,extended 75 mg PO DAILY 02/04/20 11/22/21 History release 24 hr venlafaxine 150 mg 150 mg PO DAILY 10/23/21 11/22/21 History capsule,extended release 24 hr tamsulosin 0.4 mg capsule 0.4 mg PO DAILY #90 caps 11/19/21 11/22/21 Rx docusate sodium 100 mg capsule 100 mg PO BID PRN 11/22/21 11/22/21 History Exam Narrative Exam Narrative: Vishal seems to be calm in no acute distress denies any current pain HEENT unremarkable Neck supple nontender normal carotid pulses Lungs clear to auscultation Heart regular rate rhythm Flank tenderness is minimal to palpation bilaterally Abdomen is nondistended soft normal bowel sounds no suprapubic tenderness Taylor draining clear yellow urine Lower extremities without peripheral cyanosis or edema. Neuro exam sensation is intact to light touch in both lower extremities. Babinski is downgoing bilaterally unable to elicit DTRs over the knee reflex but I did obtain ankle reflexes. Normal strength in both lower extremities Results Labs Result diagrams: 11/22/21 08:30 11/22/21 08:30 Labs: Laboratory Results - last 24 hr 11/22/21 11/22/21 11/22/21 07:50 08:17 08:30 WBC RBC Hgb Hct MCV MCH MCHC RDW Plt Count MPV Immature Gran % Neutrophils % Lymphocytes % Monocytes % Eosinophils % Basophils % Nucleated RBC % Absolute Neutrophils Absolute Lymphocytes Absolute Monocytes Absolute Eosinophils Absolute Basophils VBG Lactate Sodium 135 L Potassium 3.1 L Chloride 100 Carbon Dioxide 25.9 Anion Gap 9.1 BUN 15 Creatinine 1.5 H Est GFR (CKD-EPI 2020) 57.07 Glucose 125 H Calcium 9.2 Magnesium Cancelled 1.8 Total Bilirubin 1.1 H AST 15 ALT 19 Alkaline Phosphatase 79 Total Protein 7.8 Albumin 3.6 Urine Color Yellow Urine Clarity Cloudy Urine pH 7.0 Ur Specific [place] 1.010 Urine Protein Negative Urine Ketones Negative Urine Blood Small H Urine Nitrite Positive H Urine Bilirubin Negative Urine Urobilinogen 0.2 Ur Leukocyte Esterase Large H Urine RBC 5-10 H Urine WBC >50 H Ur Epithelial Cells Rare Urine Crystals Negative Urine Bacteria Moderate Urine Casts Negative Urine Mucus Negative Ur Culture Indicated? Yes Urine Glucose Negative COVID-19 Source SARS-CoV-2 (PCR) Influenza Type A (PCR) Influenza Type B (PCR) RSV (PCR) 11/22/21 11/22/21 11/22/21 08:30 08:30 08:40 WBC 11.19 H RBC 4.93 Hgb 13.9 Hct 41.2 MCV 84 MCH 28.2 MCHC 33.7 RDW 13.3 Plt Count 225 MPV 10.2 Immature Gran % 0.5 Neutrophils % 80.5 Lymphocytes % 6.0 Monocytes % 8.7 Eosinophils % 3.9 Basophils % 0.4 Nucleated RBC % 0.0 Absolute Neutrophils 9.01 H Absolute Lymphocytes 0.67 L Absolute Monocytes 0.97 H Absolute Eosinophils 0.44 Absolute Basophils 0.04 VBG Lactate 1.5 H Sodium Potassium Chloride Carbon Dioxide Anion Gap BUN Creatinine Est GFR (CKD-EPI 2020) Glucose Calcium Magnesium Total Bilirubin AST ALT Alkaline Phosphatase Total Protein Albumin Urine Color Urine Clarity Urine pH Ur Specific [place] Urine Protein Urine Ketones Urine Blood Urine Nitrite Urine Bilirubin Urine Urobilinogen Ur Leukocyte Esterase Urine RBC Urine WBC Ur Epithelial Cells Urine Crystals Urine Bacteria Urine Casts Urine Mucus Ur Culture Indicated? Urine Glucose COVID-19 Source Not Applicable SARS-CoV-2 (PCR) Negative Influenza Type A (PCR) Negative Influenza Type B (PCR) Negative RSV (PCR) Negative Last Vital Signs Temp 36.7 C 11/22/21 07:48 Pulse 126 H 11/22/21 07:48 Resp 18 11/22/21 07:48 BP 149/100 H 11/22/21 07:48 Pulse Ox 97 11/22/21 07:48 PAWSS Have you Been Recently Intoxicated or Drunk Within the Last 30 days?: Yes Have you Ever Experienced Previous Episodes of Alcohol Withdrawal?: No Have you ever Experienced Withdrawal Seizures?: No Have you ever Experienced Delirium Tremens(DT)s?: No Have you ever undergone Alcohol Rehabilitation Treatment (i.e, inpt ot outpatient treatment programs)?: No Have you ever Experienced Blackouts?: No Have you ever Combined Alcohol with any other Substance of Abuse during the last 90 days?: No Positive Blood Alcohol level on Presentation? [PCS.BAL]: Unable to Obtain Evidence of Increased Autonomic Activity (i.e. HR>120, tremor, sweating, agitation, nausea)?: Yes Result: 2
[2021-11-22 13:37] LABS: Lactate 0.8 mmol/L (0.6-1.4)
[2021-11-22] MEDS: Tamsulosin 0.4 MG CAPCR PO (14:10)
[2021-11-22] MEDS: Acetaminophen 325 MG TAB PO ×2 (14:10→21:16)
[2021-11-22] MEDS: Heparin 5,000 UNITS/ML VIAL 5000 UNITS SC ×2 (14:10→21:16)
[2021-11-22 15:59] LABS: Lab Add On Test DONE
[2021-11-22 16:28] LABS: Procalcitonin 0.7 ng/mL
[2021-11-23] VITALS (12 sets, daily range): BP systolic 100–119; BP diastolic 66–79; PULSE 67–97; RESP 16–18; TEMP 36.2–38.2; O2SAT 94–97
[2021-11-23] MEDS: Acetaminophen 325 MG TAB PO ×2 (03:23→15:53)
[2021-11-23 06:10] LABS: Abs Immature Grans 0.01 10^3/uL (0.0-0.06); Absolute Basophil Count 0.03 10^3/uL (0.0-0.2); Absolute Eosinophil Count 0.06 10^3/uL (0.0-0.7); Absolute Lymphocyte Count 0.65 10^3/uL (1.2-3.4); Absolute Monocyte Count 0.56 10^3/uL (0.1-0.8); Absolute Neutrophil Count 3.97 10^3/uL (1.2-6.7); Basophils % 0.6; Eosinophils % 1.1; HCT 39.5 % (40.0-50.0); HGB 12.9 g/dL (13.5-17.5); Immature Grans % 0.2; Lymphocytes % 12.3; MCH 27.6 pg (27.0-33.0); MCHC 32.7 % (32.0-36.0); MCV 84 fL (80-95); MPV 10.5 fL (8.0-11.0); Monocytes % 10.6; Neutrophils % 75.2; Platelet Count 177 10^3/uL (130-400); RBC 4.68 10^6/uL (4.36-5.78); RDW 13.4 % (11.8-14.1); RDW-SD 41.2 fL; WBC 5.28 10^3/uL (4.4-10.8)
[2021-11-23] MEDS: Heparin 5,000 UNITS/ML VIAL 5000 UNITS SC ×3 (06:14→21:12)
[2021-11-23 06:27] LABS: BUN 12 mg/dL (7-18); Chloride 105 mmol/L (98-107); Estimated GFR 92.84 (mL/min/1.73m2); Glucose 109 mg/dL (74-106); Potassium 3.4 mmol/L (3.5-5.1); Sodium 141 mmol/L (136-145)
[2021-11-23] MEDS: Venlafaxine 75 MG CAPCR PO (08:13)
[2021-11-23] MEDS: Potassium Chloride 10 MEQ CAPCR 20 MEQ PO ×3 (08:13→20:06)
[2021-11-23] MEDS: Atorvastatin 10 MG TAB PO (08:13)
[2021-11-23] MEDS: Venlafaxine 150 MG CAPCR PO (08:14)
[2021-11-23] MEDS: cefTRIAXone 2 GM/50 ML BAG IVPB (08:14)
[2021-11-23] MEDS: Normal Saline Flush 10 ML SYR (08:15)
[2021-11-23] MEDS: Tamsulosin 0.4 MG CAPCR PO (08:31)
--- NOTE | 2021-11-23 10:58 | W.UROLOGYCON ---
Date of service: 11/23/21 Time of Service: 10:58 Assessment and Plan Assessment and plan (1) Urinary retention with incomplete bladder emptying: Status: Acute Assessment and plan: Our preferred management for these patients with urinary retention is timed voiding with CIC. The patient has shown that he is not going to be able to keep up with CIC at this point in time. An indwelling catheter is probably most reasonable for him. He may benefit from a suprapubic tube rather than a urethral catheter. That way, we can plug the suprapubic tube and have him do his voiding trials. He would not need to CIC he would simply need to unplug the catheter and allow the bladder to drain. We would not want to place the suprapubic tube until or unless his infection has been treated. We could always place the suprapubic tube as an outpatient once he completes his antibiotics. History of Present Illness History of Present Illness Chief Complaint: Urosepsis Narrative: This is a 46-year-old woman who has a fairly complicated urologic history. I have not been able to locate all of his urologic records. He apparently has a history of bilateral megaureter. He had some type of surgery done previously but I am not certain if the surgery involved any tapering of his megaureters or ureteral reimplantation. Over the years, he has had multiple studies that showed varying degrees of ureteral dilation. When his serum creatinine worsened recently, first a renal ultrasound was obtained followed by a CT urogram. The ultrasound showed a distended bladder and bilateral hydronephrosis. I do not see that his bladder was drained following the ultrasound. His CT urogram confirmed the distended bladder and dilated ureters and collecting systems bilaterally. When he came to see us for this issue, we placed a Cazares catheter to drain his bladder and allow the kidneys to drain. We did a [id number] renal ultrasound in the office which showed improvement in the degree of dilation in the kidneys. Last week, we did a urodynamic study to see if his bladder pressure would be adequate for him to void. We did find that he was able to generate a detrusor pressure, but he had no sensation of bladder filling. We then removed his Cazares and had him start timed voiding and CIC. We generally try to keep the catheterized volumes at about 500 cc or less. We also started him on tamsulosin to see if medications would help him empty his bladder. He did perform CIC occasionally through the weekend and did obtain large volumes of urine. He admits to being under quite a bit of stress and does not believe that he would be able to keep up with the CIC schedule for now. He presented to the emergency department with worsening abdominal discomfort. His lab work was quite suspicious for urinary tract infection and possible sepsis. A Cazares catheter was replaced and the patient immediately had relief from his discomfort. Review of Systems Constitutional Comments: No fevers or chills No vision change or dysphasia No diabetes or thyroid dysfunction No shortness of breath, cough or hemoptysis No chest pain or palpitations No nausea, vomiting, hepatitis, ulcers, jaundice No seizures, strokes or peripheral neuropathy No bleeding disorders or anemia No gout PFSH All Active Problems (Updated 11/22/21 @ 16:20 by Josué Talbert MD) Complicated UTI (urinary tract infection) (Acute) Urinary retention with incomplete bladder emptying (Acute) Bilateral hydronephrosis (Acute) Medical History Erectile dysfunction Gastritis HLD (hyperlipidemia) HTN (hypertension) Intermittent asthma Lumbar spondylosis Major depression Right lateral epicondylitis Surgical History Bilateral Ureter reimplantation Colonoscopy - MAC (07/14/16) EGD - MAC (07/14/16) Spinal Fusion Social History Smoking/Tobacco Use Status: Never Smoking risk assessment performed?: Yes Alcohol Intake: current Alcohol Intake frequency: other Alcohol type: beer Drug use: Never Substance use type: does not use Details: Drinks roughly a 12 pack every other day Do you feel safe at home: Yes Do you feel safe in your relationship?: Yes Exam Narrative Exam Narrative: He appears comfortable at this point His vital signs are documented elsewhere The urethral catheter is draining clear urine He is awake and alert Results Last Vital Signs Temp 37.1 C 11/23/21 07:33 Pulse 87 11/23/21 07:33 Resp 18 11/23/21 07:33 BP 107/70 11/23/21 07:33 Pulse Ox 94 11/23/21 07:33 Labs Result diagrams: 11/23/21 05:19 11/24/21 06:05 Labs: Laboratory Results - last 24 hr 11/22/21 11/22/21 11/22/21 08:30 13:35 Unknown WBC RBC Hgb Hct MCV MCH MCHC RDW Plt Count MPV Immature Gran % Neutrophils % Lymphocytes % Monocytes % Eosinophils % Basophils % Nucleated RBC % Absolute Neutrophils Absolute Lymphocytes Absolute Monocytes Absolute Eosinophils Absolute Basophils VBG Lactate 0.8 Sodium Potassium Chloride Carbon Dioxide Anion Gap BUN Creatinine Est GFR (CKD-EPI 2020) Glucose Calcium Procalcitonin 0.7 Add-On Test Request DONE 11/23/21 11/23/21 05:19 05:19 WBC 5.28 RBC 4.68 Hgb 12.9 L Hct 39.5 L MCV 84 MCH 27.6 MCHC 32.7 RDW 13.4 Plt Count 177 MPV 10.5 Immature Gran % 0.2 Neutrophils % 75.2 Lymphocytes % 12.3 Monocytes % 10.6 Eosinophils % 1.1 Basophils % 0.6 Nucleated RBC % 0.0 Absolute Neutrophils 3.97 Absolute Lymphocytes 0.65 L Absolute Monocytes 0.56 Absolute Eosinophils 0.06 Absolute Basophils 0.03 VBG Lactate Sodium 141 Potassium 3.4 L Chloride 105 Carbon Dioxide 25.0 Anion Gap 11.0 BUN 12 Creatinine 1.0 Est GFR (CKD-EPI 2020) 92.84 Glucose 109 H Calcium 9.0 Procalcitonin Add-On Test Request
--- NOTE | 2021-11-23 11:33 | W.PM.PROGNOT ---
Date of Service Date of service: 11/23/21 Time of Service: 11:33 Assessment and Plan Assessment and plan (1) Urinary retention with incomplete bladder emptying: Status: Acute Assessment and plan: It would seem that patient has inability to generate adequate pressure to empty his bladder and has a lack of sensation of fullness of his bladder. Given his prior history of DJD and previous discectomy and fusion of his spine it may be that he has some chronic nerve damage from his spine causing a neurogenic bladder. We will leave the Cazares catheter while Dr. Warren reviews his case. I will proceed w/ MRI of LS spine w/wo contrast (2) Bilateral hydronephrosis: Status: Acute (3) Complicated UTI (urinary tract infection): Status: Acute Assessment and plan: Rocephin 2 gm daily, modify based on urine cultures. Subjective Subjective Interval history since last seen: Vishal feels better. No flank pain. Tmax 38 last night, afebrile now. Cazares draining clear yellow urine. He remains on Ceftriaxone for his complicated UTI. Dr. Warren has seen him. Difficult situation as the patient has bilateral hydroureter and unclear how long this has been present. Dr. Warren is thinking that the patient may require SPC. I will get MRI of his LS spine given the patient's hx of DJD of his spine and prior lumbar surgery. Exam Narrative Exam Narrative: Vishal is lying in bed watching TV, no acute distress; no flank pains Abdomen: soft, nondistended, nontender Cazares draining clear yellow urine. Objective Last Vital Signs Temp 37.5 C 11/23/21 11:09 Pulse 83 11/23/21 11:09 Resp 17 11/23/21 11:09 BP 108/73 11/23/21 11:09 Pulse Ox 96 11/23/21 11:09 Laboratory Results - last 24 hr 11/22/21 11/22/21 11/22/21 08:30 13:35 Unknown WBC RBC Hgb Hct MCV MCH MCHC RDW Plt Count MPV Immature Gran % Neutrophils % Lymphocytes % Monocytes % Eosinophils % Basophils % Nucleated RBC % Absolute Neutrophils Absolute Lymphocytes Absolute Monocytes Absolute Eosinophils Absolute Basophils VBG Lactate 0.8 Sodium Potassium Chloride Carbon Dioxide Anion Gap BUN Creatinine Est GFR (CKD-EPI 2020) Glucose Calcium Procalcitonin 0.7 Add-On Test Request DONE 11/23/21 11/23/21 05:19 05:19 WBC 5.28 RBC 4.68 Hgb 12.9 L Hct 39.5 L MCV 84 MCH 27.6 MCHC 32.7 RDW 13.4 Plt Count 177 MPV 10.5 Immature Gran % 0.2 Neutrophils % 75.2 Lymphocytes % 12.3 Monocytes % 10.6 Eosinophils % 1.1 Basophils % 0.6 Nucleated RBC % 0.0 Absolute Neutrophils 3.97 Absolute Lymphocytes 0.65 L Absolute Monocytes 0.56 Absolute Eosinophils 0.06 Absolute Basophils 0.03 VBG Lactate Sodium 141 Potassium 3.4 L Chloride 105 Carbon Dioxide 25.0 Anion Gap 11.0 BUN 12 Creatinine 1.0 Est GFR (CKD-EPI 2020) 92.84 Glucose 109 H Calcium 9.0 Procalcitonin Add-On Test Request PAWSS Have you Been Recently Intoxicated or Drunk Within the Last 30 days?: Yes Have you Ever Experienced Previous Episodes of Alcohol Withdrawal?: No Have you ever Experienced Withdrawal Seizures?: No Have you ever Experienced Delirium Tremens(DT)s?: No Have you ever undergone Alcohol Rehabilitation Treatment (i.e, inpt ot outpatient treatment programs)?: No Have you ever Experienced Blackouts?: No Have you ever Combined Alcohol with any other Substance of Abuse during the last 90 days?: No Positive Blood Alcohol level on Presentation? [PCS.BAL]: Unable to Obtain Evidence of Increased Autonomic Activity (i.e. HR>120, tremor, sweating, agitation, nausea)?: Yes Result: 2
--- NOTE | 2021-11-23 12:38 | DI.MRI_ITS ---
Exam(s) MR LUMBAR SPINE WO/W EXAM: MR LUMBAR SPINE WO/W CLINICAL HISTORY: chronic low back pain; neurogenic bladder TECHNIQUE: Multiplanar multisequence MRI of the Lumbar Spine was performed. CONTRAST MATERIAL: IV Contrast: 16 mL of Dotarem contrast administered. COMPARISON: CT CT ABDOMEN PELVIS WO from 11/22/2021 FINDINGS: Bones: The last intervertebral disc space is designated the L5/S1 level for the numbering purpose of this examination. The vertebral body heights are well maintained. Alignment is satisfactory. The sig nal characteristics are unremarkable. Cord: The conus tip ends at the T12 level. It is of normal size and signal intensity. T12-L1: No disc herniations or bulges are present. L1-2: No disc herniations or bulges are present. L2-3: No disc herniations or bulges are present. L3-4: No disc herniations or bulges are present. L4-5: No disc herniations or bulges are present. There are mild facet joint degenerative changes. L5-S1: Posterior fusion hardware creating mild artifact. Small left paracentral focal disc protrusio n which appears to mildly impinge on the left S1 nerve root. No central canal stenosis or neural for aminal narrowing. Soft tissues: The visualized SI joints and sacrum are well maintained. The paraspinal soft tissues ar e unremarkable. There is severe bilateral hydronephrosis is seen on recent CT. There is no evidence of suspicious enhancement. IMPRESSION: Postsurgical changes with posterior fusion at L5-S1. Small left paracentral disc protrusion at L5-S1 . This may mildly impinge on the left S1 nerve root. No abnormal in enhancement. No evidence of si gnificant spinal stenosis or neuroforaminal narrowing. DATA REPOSITORY:
--- NOTE | 2021-11-23 16:14 | PDOC.CMIN ---
- If Service Date Differs Date of service: 11/23/21 Time of Service: 16:14 Care Management Initial Assess REASON FOR HOSPITALIZATION:: Bilateral Hydronephrosis, acute pyelonephritis PAST MEDICAL HISTORY/PAST SURGICAL HISTORY:: Medical History . Erectile dysfunction. Gastritis. HLD (hyperlipidemia). HTN (hypertension). Intermittent asthma. Lumbar spondylosis. Major depression. Right lateral epicondylitis. Surgical History . Bilateral Ureter reimplantation. Colonoscopy - MAC (07/14/16). EGD - MAC (07/14/16). Spinal Fusion PREVIOUS FUNCTIONAL STATUS/SOCIAL/FAMILY SUPPORTS:: Resides in [place], [place] on [place], has good neighbor and friend support in the community; independent at baseline. Currently, he reports going through a tough seperation from his and is struggling with multiple psycho-social stressors. CURRENT FUNCTIONAL STATUS:: Vishal remains inpatient at this time, Dr. Warren consulted, awaiting additional imaging, per MD. Has patient been provided with info about the portal/API?: Yes Did the patient sign up for the portal?: No CODE STATUS:: Full Code INSURANCE COVERAGE / FINANCIAL ISSUES:: Medicaid CURRENT HOME/COMMUNITY SERVICES/EQUIPMENT:: Indwelling catheter removed . PRIMARY CARE PHYSICIAN:: Jose Clement POTENTIAL DISCHARGE NEEDS:: Follow up appointments. PATIENT/FAMILY EDUCATION NEEDS:: Review discharge instructions, discuss Ask Me Three. ANTICIPATED BARRIERS TO DISCHARGE:: None identified. TRANSPORTATION:: Via private vehicle with [employer]. PLAN:: Vishal continues to be closely monitored and treated, CM continues to follow. Discussed referral to [facility] for legal department manager support with navigating legal system re: seperation with children involved. Vishal reports anxiety and stress are complicating medical status and self management as well, additional reasons for [facility] support.
[2021-11-23] MEDS: Normal Saline Flush 10 ML SYR IVP (20:07)
[2021-11-24 03:15] VITALS: BP 109/73; PULSE 79; RESP 18; TEMP 36.7; O2SAT 96
[2021-11-24] MEDS: Heparin 5,000 UNITS/ML VIAL 5000 UNITS SC ×2 (06:31→18:10)
[2021-11-24 06:54] LABS: Anion Gap 9.3 mmol/L (3-11); BUN 15 mg/dL (7-18); CO2 26.7 mmol/L (21.0-32.0); Calcium 8.9 mg/dL (8.5-10.1); Chloride 107 mmol/L (98-107); Estimated GFR 92.84 (mL/min/1.73m2); Glucose 99 mg/dL (74-106); Potassium 3.7 mmol/L (3.5-5.1); Sodium 143 mmol/L (136-145)
[2021-11-24 07:28] VITALS: BP 116/76; PULSE 70; RESP 18; TEMP 37; O2SAT 97
[2021-11-24] MEDS: Venlafaxine 75 MG CAPCR PO (08:44)
[2021-11-24] MEDS: Tamsulosin 0.4 MG CAPCR PO (08:45)
[2021-11-24] MEDS: Atorvastatin 10 MG TAB PO (08:45)
[2021-11-24] MEDS: Venlafaxine 150 MG CAPCR PO (08:45)
[2021-11-24] MEDS: Normal Saline Flush 10 ML SYR IVP (08:50)
[2021-11-24] MEDS: cefTRIAXone 2 GM/50 ML BAG IVPB (08:50)
[2021-11-24 11:31] VITALS: BP 110/73; PULSE 65; RESP 16; TEMP 36.7; O2SAT 98
--- NOTE | 2021-11-24 12:06 | W.PM.PROGNOT ---
Date of Service Date of service: 11/24/21 Time of Service: 12:06 Assessment and Plan Assessment and plan (1) Complicated UTI (urinary tract infection): Status: Acute Assessment and plan: With the blood cultures, it is unlikely that he will need prolonged IV antibiotics. Once the final urine culture and sensitivity are available, we can probably send him home on oral antibiotics. I had a discussion with the patient regarding urethral catheters versus suprapubic catheters. He is interested in converting over to a suprapubic catheter once his infection has cleared. I would suggest that once he is discharged on oral antibiotics, we arrange for cystoscopy and placement of a suprapubic tube (as an outpatient) while he is still on his antibiotics. I will fill the paperwork out for my office staff to schedule the procedure once he is ready for discharge. Subjective Subjective Interval history since last seen: He feels much better than at the time of admission. He does not believe that he would be compliant with CIC at home, so he would prefer going home with an indwelling catheter. Exam Narrative Exam Narrative: He does not appear septic or toxic His urine is clear in the drainage bag He is awake and alert His blood cultures showed no bacterial growth. He has gram-negative rods along with some gram-positive laney in the urine. Objective Last Vital Signs Temp 36.7 C 11/24/21 11:31 Pulse 65 11/24/21 11:31 Resp 16 11/24/21 11:31 BP 110/73 11/24/21 11:31 Pulse Ox 98 11/24/21 11:31 Laboratory Results - last 24 hr 11/24/21 06:05 Sodium 143 Potassium 3.7 Chloride 107 Carbon Dioxide 26.7 Anion Gap 9.3 BUN 15 Creatinine 1.0 Est GFR (CKD-EPI 2020) 92.84 Glucose 99 Calcium 8.9 PAWSS Have you Been Recently Intoxicated or Drunk Within the Last 30 days?: Yes Have you Ever Experienced Previous Episodes of Alcohol Withdrawal?: No Have you ever Experienced Withdrawal Seizures?: No Have you ever Experienced Delirium Tremens(DT)s?: No Have you ever undergone Alcohol Rehabilitation Treatment (i.e, inpt ot outpatient treatment programs)?: No Have you ever Experienced Blackouts?: No Have you ever Combined Alcohol with any other Substance of Abuse during the last 90 days?: No Positive Blood Alcohol level on Presentation? [PCS.BAL]: Unable to Obtain Evidence of Increased Autonomic Activity (i.e. HR>120, tremor, sweating, agitation, nausea)?: Yes Result: 2
--- NOTE | 2021-11-24 14:16 | W.PM.PROGNOT ---
Date of Service Date of service: 11/24/21 Time of Service: 14:16 Assessment and Plan Assessment and plan (1) Complicated UTI (urinary tract infection): Status: Acute Assessment and plan: Present on admssion. Urine C&S mixed. Blood cx negative x 48 hrs. In setting of urinary retention, now s/p taylor. Continue Rocephin 2 gm daily. Anticipate will be able to be discharged home tomorrow (I want at least 24 hrs w/o a fever) with a taylor catheter and outpatient follow up with urology for a suprapubic catheter. Provide taylor catheter teaching. (2) Urinary retention with incomplete bladder emptying: Status: Acute Assessment and plan: Per urology/uronynamic study, unable to generate sufficient pressure to empty his bladder and unable to sense bladder fullness. MRI w/o evidence of spinal stenosis. Would benefit from a suprapubic catheter - plan for this to happen as outpatient. (3) Bilateral hydronephrosis: Status: Chronic Assessment and plan: As above (4) Hypokalemia: Status: Resolved Assessment and plan: recheck in am (5) DVT prophylaxis: Status: Acute Assessment and plan: SC heparin (6) Discharge planning issues: Status: Acute Assessment and plan: Full code Anticipate discharge home tomorrow if afebrile x 24 hrs. Needs taylor catheter teaching which I have ordered. Subjective Subjective Interval history since last seen: Mr Gudino is feeling quite a bit better. Denies dizziness, chest pain,shortness of breath, nausea. His back is not bothering him. He is feeling overall more energetic. His last fever was yestesrday at 15:53. Exam Narrative Exam Narrative: General: Middle-aged male, laying comfortably in bed, A&Ox3, NAD HEENT: EOMI, MMM Heart: RRR, no m/r/g Lungs: CTAB Abdomen: soft, nontender, nondistended; taylor is draining clear yellow urine Extremities: no edema BLEs Objective Last Vital Signs Temp 36.7 C 11/24/21 11:31 Pulse 65 11/24/21 11:31 Resp 16 11/24/21 11:31 BP 110/73 11/24/21 11:31 Pulse Ox 98 11/24/21 11:31 Laboratory Results - last 24 hr 11/24/21 06:05 Sodium 143 Potassium 3.7 Chloride 107 Carbon Dioxide 26.7 Anion Gap 9.3 BUN 15 Creatinine 1.0 Est GFR (CKD-EPI 2020) 92.84 Glucose 99 Calcium 8.9 PAWSS Have you Been Recently Intoxicated or Drunk Within the Last 30 days?: Yes Have you Ever Experienced Previous Episodes of Alcohol Withdrawal?: No Have you ever Experienced Withdrawal Seizures?: No Have you ever Experienced Delirium Tremens(DT)s?: No Have you ever undergone Alcohol Rehabilitation Treatment (i.e, inpt ot outpatient treatment programs)?: No Have you ever Experienced Blackouts?: No Have you ever Combined Alcohol with any other Substance of Abuse during the last 90 days?: No Positive Blood Alcohol level on Presentation? [PCS.BAL]: Unable to Obtain Evidence of Increased Autonomic Activity (i.e. HR>120, tremor, sweating, agitation, nausea)?: Yes Result: 2
[2021-11-24 14:49] VITALS: BP 112/69; PULSE 80; RESP 16; TEMP 36.8; O2SAT 98
[2021-11-24 19:10] VITALS: BP 128/85; PULSE 97; RESP 18; TEMP 36.6; O2SAT 100
[2021-11-24 23:15] VITALS: BP 128/85; PULSE 97; RESP 18; TEMP 36.7; O2SAT 100
[2021-11-25] MEDS: Heparin 5,000 UNITS/ML VIAL 5000 UNITS SC (02:13)
[2021-11-25 03:39] VITALS: BP 109/73; PULSE 79; RESP 18; TEMP 36; O2SAT 98
[2021-11-25 06:16] LABS: Abs Immature Grans 0.02 10^3/uL (0.0-0.06); Absolute Basophil Count 0.04 10^3/uL (0.0-0.2); Absolute Eosinophil Count 0.13 10^3/uL (0.0-0.7); Absolute Lymphocyte Count 1.43 10^3/uL (1.2-3.4); Absolute Monocyte Count 0.72 10^3/uL (0.1-0.8); Absolute Neutrophil Count 3.43 10^3/uL (1.2-6.7); Basophils % 0.7; Eosinophils % 2.3; HCT 41.5 % (40.0-50.0); HGB 13.5 g/dL (13.5-17.5); Immature Grans % 0.3; Lymphocytes % 24.8; MCH 27.6 pg (27.0-33.0); MCHC 32.5 % (32.0-36.0); MCV 85 fL (80-95); MPV 10.4 fL (8.0-11.0); Monocytes % 12.5; Neutrophils % 59.4; Platelet Count 260 10^3/uL (130-400); RBC 4.89 10^6/uL (4.36-5.78); RDW 13.2 % (11.8-14.1); RDW-SD 41.1 fL; WBC 5.77 10^3/uL (4.4-10.8)
[2021-11-25 06:29] LABS: Anion Gap 7.9 mmol/L (3-11); BUN 14 mg/dL (7-18); CO2 29.1 mmol/L (21.0-32.0); CREATININE 1.1 mg/dL (0.70-1.30); Calcium 9.3 mg/dL (8.5-10.1); Chloride 105 mmol/L (98-107); Estimated GFR 82.81 (mL/min/1.73m2); Glucose 100 mg/dL (74-106); Magnesium 1.8 mg/dL (1.8-2.4); Potassium 3.9 mmol/L (3.5-5.1); Sodium 142 mmol/L (136-145)
[2021-11-25 07:28] VITALS: BP 117/75; PULSE 79; RESP 16; TEMP 36.7; O2SAT 97
[2021-11-25] MEDS: cefTRIAXone 2 GM/50 ML BAG IVPB (08:25)
[2021-11-25] MEDS: Venlafaxine 75 MG CAPCR PO (08:25)
[2021-11-25] MEDS: Venlafaxine 150 MG CAPCR PO (08:25)
[2021-11-25] MEDS: Atorvastatin 10 MG TAB PO (08:25)
[2021-11-25] MEDS: Tamsulosin 0.4 MG CAPCR PO (08:25)
[2021-11-25] MEDS: Normal Saline Flush 10 ML SYR IVP ×2 (08:26→09:18)
--- NOTE | 2021-11-25 09:27 | PDOC.CMPRO ---
- If Service Date Differs Date of service: 11/25/21 Time of Service: 09:27 Care Management Progress Note S/O: Vishal was sitting up in his chair when CM met with him. He is alert, oriented and easy to engage in conversation. In anticipation of Vishal's discharge today, CM contacted Charlette at Dr. Warren's office about cath supplies for home. Per Charlette, Vishal has surgery in 5 days for a SPT, at which time he will transition from a bag system to a plug. Supplies are only needed on a temporary basis. Charlette brought pt down a leg bag, and pt says he has one on hand at home. At Dr. Prince's request, VIKTORIYA asked pts primary RN to send a few bed bags with patient when he is discharged and provide education. In addition, New [facility] RN services are offered to patient, and they can also access supplies if needed prior to his surgery. Vishal will be discharged on PO ABX, RX's should be sent to [facility] in [facility], per pt. CM updated. A: 46 year old male admitted to [facility] on 11/22/21 for Bilateral Hydronephrosis, acute pyelonephritis P: Anticipate, Vishal will discharge home with New [facility] RN services and a short supply of bed/leg bags. Vishal will be transported via private vehicle with family. Surgical intervention with Dr. Warren is scheduled for 11/30/21. Vishal will follow discharge plan of care as prescribed and follow up with community providers. He will also call Dr. Warren's office or return to the ED with any new or worsening sx.
--- NOTE | 2021-11-25 10:39 | DSE_ITS ---
Date of service: 11/25/21 Time of Service: 10:40 DS: Diagnosis Discharge Diagnosis (1) Complicated UTI (urinary tract infection): Status: Acute (2) Serratia infection: Status: Acute (3) Urinary retention with incomplete bladder emptying: Status: Acute (4) Bilateral hydronephrosis: Status: Chronic (5) Hypokalemia: Status: Resolved Discharge Plan Disposition Patient Disposition: HOME Condition: Improving Discharge Details Reason For Visit: Bilateral Hydronephrosis; Acute Pyelonephritis Admit Date/Time: 11/22/21 12:31 Admit Provider: Josué Talbert Attending Provider: Josué Talbert [facility] Hospital Course: Mr Gudino is a 46 year old male with 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 Blood cultures were negative. The patient was treated with insertion of a taylor catheter, empiric ceftriaxone, and was evaluated by Dr Warren who felt that, for now, the patient should have a taylor catheter but would benefit from a suprapubic tube insertion as outpatient. Spinal stenosis was ruled out with a negative MRI of the lumbar spine. The patient clinically improved and defervesced on ceftriaxone. He is going home today with a prescription for cefpodoxime to complete a 14 day course of antibiotics, a taylor catheter, and follow up with urology. Care for patient as well as completion of his discharge summary took 45 minutes on the day of discharge. Home Meds and New Rx's Prescriptions: New cefpodoxime 200 mg tablet 200 mg PO BID Qty: 20 0RF Rx Instructions: must administer with a meal/food Start on 11/26/21 Continued tamsulosin 0.4 mg capsule 0.4 mg PO DAILY Qty: 90 4RF trazodone 100 mg tablet 100 mg PO QHS PRN venlafaxine 75 mg capsule,extended release 24hr 75 mg PO DAILY atorvastatin 10 mg tablet 10 mg PO DAILY tadalafil [Cialis] 20 mg tablet 20 mg PO DAILY PRN Rx Instructions: administer approximately 30min before sexual activity; do not use more than 1 dose per 24hrs omega-3 fatty acids 1,000 mg capsule 1,000 mg PO DAILY Label Comments: Pt has been out 11/22/21 venlafaxine 150 mg capsule,extended release 24hr 150 mg PO DAILY Label Comments: 10/22/21- pt takes a 150 mg tab with 75 mg tab daily together for daily dose of 225 mg per pt report. nortriptyline 10 MG capsule 10 mg PO HS Label Comments: Pt has been out 11/22/21 albuterol sulfate 90 mcg/actuation HFA aerosol inhaler 2 puff IH Q6H PRN (Reason: shortness of breath or wheezing) Qty: 6.7 0RF docusate sodium 100 MG capsule 100 mg PO BID PRN Discontinued losartan 50 mg tablet 50 mg PO DAILY Label Comments: Pt has been out 11/22/21 amlodipine 10 mg tablet 10 mg PO DAILY Label Comments: Pt has been out CJ 11/22/21 Discharge Instructions Instructions: Cefpodoxime Proxetil (By mouth), Urinary Retention in Men (ED), Urinary Tract Infection in Men (DC), Taylor Catheter Placement and Care (DC), Suprapubic Cystostomy (PRE), Urinary Leg Bag (GEN) Additional Instructions: Finish your antibiotic as prescribed. Return to the hospital with any fever, bleeding, chest pain, shortness of breath, weakness. Follow up with your PCP in 1-2 weeks. Follow up with Dr Warren. Care Plan Goals: Home with Stand Alone Forms: Nursing Discharge Form Referrals: Kit Warren MD [ [facility] STAFF PHYSICIAN] - 11/30/21 (Day surgery will call you by 2:00pm two business days before your prcedure with the arrival time. Please call them if you have not heard from by 2:00pm ([phone]). YOU MUST HAVE A WORKING PHONE. ) Jose Clement [Primary Care Provider] - 12/09/21 8:45 am Activity:: Activity as Tolerated Equipment/Supplies:: Taylor catheter supplies Diet:: As Tolerated Discharge Orders Discharge Orders: Discharge Order (Routine); Ordered 11/25/21 Ordered By: Carine Prince DS: Summary Time Spent with Patient providing and/or coordinating discharge services: Greater than 30 minutes Status at Discharge Functional status at discharge: independent ambulation Overall status at discharge: patient is progressing back to baseline Mental Status: mental status grossly normal Speech and Movement: speech and movement normal Mood: congruent mood Affect: normal affect Exam Narrative Exam Narrative: General: Middle-aged male, laying comfortably in bed, A&Ox3, NAD HEENT: EOMI, MMM Heart: RRR, no m/r/g Lungs: CTAB Abdomen: soft, nontender, nondistended; taylor is draining clear yellow urine Extremities: no edema BLEs Psych Mental Status: mental status grossly normal Speech and Movement: speech and movement normal Mood: congruent mood Affect: normal affect DS: Data Vitals/I&O Vitals and I&O: Vital Signs Temperature 36.7 C 11/25/21 07:28 Temperature Source Tympanic 11/25/21 07:28 Pulse 79 11/25/21 07:28 Pulse Rhythm Regular 11/25/21 03:15 Pulse 93 H 11/22/21 13:31 Respiratory Rate 16 11/25/21 07:28 Respiratory Effort 11/25/21 03:15 Respiratory Depth Normal 11/25/21 03:15 Respiratory Pattern Normal 11/25/21 03:15 Blood Pressure 117/75 11/25/21 07:28 Blood Pressure Mean 126 11/22/21 13:47 Blood Pressure Position Sitting 11/22/21 07:48 Pulse Oximetry 97 11/25/21 07:28 Oxygen Delivery Method Room Air 11/25/21 07:28 Oxygen Flow Rate 0 11/25/21 07:28 Pain Level 0 11/25/21 07:28 Comment 11/22/21 15:20 Intake & Output 11/24/21 11/24/21 11/25/21 11:59 23:59 11:59 Intake Total 650 / 890 240 / 890 800 / 800 Output Total 2309 / 6959 4650 / 6959 1850 / 1850 Balance -1659 / -6069 -4410 / -6069 -1050 / -1050 Weight 90.3 kg 88.5 kg Intake: IV 50 / 50 Oral 600 / 840 240 / 840 800 / 800 Output: Urine 2309 / 6959 4650 / 6959 1850 / 1850 Other: Urine Color Yellow Yellow Yellow Straw Urine Appearance Clear Clear Clear Stool Size Large Stool Characteristics Formed Data Completed and Pending Labs on day of discharge: Labs from last 24 hours 11/25/21 11/25/21 05:47 05:47 WBC 5.77 RBC 4.89 Hgb 13.5 Hct 41.5 MCV 85 MCH 27.6 MCHC 32.5 RDW 13.2 Plt Count 260 MPV 10.4 Immature Gran % 0.3 Neutrophils % 59.4 Lymphocytes % 24.8 Monocytes % 12.5 Eosinophils % 2.3 Basophils % 0.7 Nucleated RBC % 0.0 Absolute Neutrophils 3.43 Absolute Lymphocytes 1.43 Absolute Monocytes 0.72 Absolute Eosinophils 0.13 Absolute Basophils 0.04 Sodium 142 Potassium 3.9 Chloride 105 Carbon Dioxide 29.1 Anion Gap 7.9 BUN 14 Creatinine 1.1 Est GFR (CKD-EPI 2020) 82.81 Glucose 100 Calcium 9.3 Magnesium 1.8 Preliminary micro results at discharge 11/22/21 08:30 Blood Culture - Preliminary Blood NO GROWTH 72 HOURS 11/22/21 09:25 Blood Culture - Preliminary Blood NO GROWTH 48 HOURS Additional Comments Additional comments: CT abdomen/pelvis w/o contrast: Severe bilateral hydronephrosis and hydroureter and distention of urinary bladder, no change in appearance from October 01 study. CXR: No acute pulmonary findings. Lumbar spine MRI w/w/o contrast: Postsurgical changes with posterior fusion at L5-S1.? Small left paracentral disc protrusion at L5-S1.? This may mildly impinge on the left S1 nerve root.? No abnormal in enhancement.? No evidence of significant spinal stenosis or neuroforaminal narrowing. PFSH All Active Problems (Updated 11/25/21 @ 10:40 by Carine Prince MD) Serratia infection (Acute) Discharge planning issues (Acute) DVT prophylaxis (Acute) Acute UTI (Acute) Sepsis (Acute) Complicated UTI (urinary tract infection) (Acute) Urinary retention with incomplete bladder emptying (Acute) Bilateral hydronephrosis (Chronic) Medical History Erectile dysfunction Gastritis HLD (hyperlipidemia) HTN (hypertension) Intermittent asthma Lumbar spondylosis Major depression Right lateral epicondylitis Surgical History Bilateral Ureter reimplantation Colonoscopy - MAC (07/14/16) EGD - MAC (07/14/16) Spinal Fusion Social History Smoking/Tobacco Use Status: Never Smoking risk assessment performed?: Yes Alcohol Intake: current Alcohol Intake frequency: other Alcohol type: beer Drug use: Never Substance use type: does not use Details: Drinks roughly a 12 pack every other day Do you feel safe at home: Yes Do you feel safe in your relationship?: Yes
--- NOTE | 2021-11-25 10:50 | CMDISCH_ITS ---
- If Service Date Differs Date of service: 11/25/21 Time of Service: 10:50 LACE Index Scoring Tool - Questions: Length of Stay (in days): 3 Acuity (Admit via E.D.?): Yes E.D. Visits: 1 - Answers: Total Score: 7 Risk of Readmission: Low Risk Care Management Discharge Reason for Hospitalization: Bilateral Hydronephrosis, acute pyelonephritis Discharge Plan: Vishal is discharged home via private vehicle with family. New RX is transmitted to [facility]. PCP follow up is recommended within 1-2 weeks, appt is scheduled with Dr. Clement on 12/09/21. Surgical intervention with Dr. Warren is scheduled for 11/30/21. Day Surgery will contact pt 2 days prior to the procedure. Vishal will return to the ED with any new or worsening sx. ie.) fever, bleeding, chest pain, shortness of breath, weakness. No H services are ordered at the time of this discharge, per patient is able to manage independently at home. Patient/Family Education Needs: Review discharge instructions, limitations, medications and plan to follow up with Dr. Warren and community providers. Review ask me three.
== END 2021-11-25 12:22 | disposition home or self-care (01) | DRG 690 ==
LOC: ER 12:59 → MS 13:50
PROVIDERS: Internal Medicine; Admitting Provider Internal Medicine; Emergency Provider Physician Assistant; PCP Family Medicine; Visit Provider Internal Medicine
DX: N13.6 Pyonephrosis (principal); Q62.2 Congenital megaureter; R33.9 Retention of urine, unspecified; E87.6 Hypokalemia; I10 Essential (primary) hypertension; E78.5 Hyperlipidemia, unspecified; F32.A Depression, unspecified; K29.70 Gastritis, unspecified, without bleeding; M47.816 Spondylosis without myelopathy or radiculopathy, lumbar region; Z98.1 Arthrodesis status; B96.89 Other specified bacterial agents as the cause of diseases classified elsewhere
CPT/HCPCS: 36415; 51702; 72158; 80048; 80053; 84145; 87040; 87077; 87637; 96361; 96365; 99291; 71045; 74176; 81003; 81015; 83605; 83735; 85025; 87086; 87186; 99222; 99231; 99232; 99239; J1644

== ENCOUNTER 2021-11-30 07:05 | Day surgery (SDC) | payer MEDICAID, SELFPAY ==
[2021-11-30 07:53] VITALS: BP 120/76; PULSE 80; RESP 16; TEMP 36.5; O2SAT 97
[2021-11-30] MEDS: Lactated Ringers 1,000 ML 80 ML IV (08:25)
--- NOTE | 2021-11-30 09:01 | W.PM.HP.N ---
Date of service: 11/30/21 Time of Service: 09:01 Assessment and Plan Assessment and plan (1) Urinary retention with incomplete bladder emptying: Status: Acute (2) Bilateral hydronephrosis: Status: Chronic Assessment and plan: We will place a suprapubic tube and initially leave it to continuous drainage. Eventually, we may begin plugging the catheter to give him voiding trials. History of Present Illness History of Present Illness Chief Complaint: Urinary retention Narrative: This is a 46-year-old gentleman who has a finding of urinary retention with obstructive uropathy. Initially, he had a urethral catheter in place. We then switched him to clean intermittent catheterization. He was unable to comply with the CIC schedule and he developed a Serratia urinary tract infection. He presents for placement of a suprapubic tube. Review of Systems Narrative: No fevers or chills No vision change or dysphasia No diabetes or thyroid dysfunction No shortness of breath, cough or hemoptysis No chest pain or palpitations No nausea, vomiting, hepatitis, ulcers, jaundice No seizures or strokes No bleeding disorders or anemia Chronic back pain. No gout PFSH All Active Problems Bilateral hydronephrosis (Chronic) Urinary retention with incomplete bladder emptying (Acute) Complicated UTI (urinary tract infection) (Acute) Acute UTI (Acute) Sepsis (Acute) Serratia infection (Acute) Medical History Erectile dysfunction Gastritis HLD (hyperlipidemia) HTN (hypertension) Intermittent asthma Lumbar spondylosis Major depression Right lateral epicondylitis Surgical History Bilateral Ureter reimplantation Colonoscopy - MAC (07/14/16) EGD - MAC (07/14/16) History of vasectomy Hx of hernia repair Spinal Fusion L5 Social History Smoking/Tobacco Use Status: Never Smoking risk assessment performed?: Yes Alcohol Intake: current Alcohol Intake frequency: 3 or more drinks per day Alcohol type: beer Drug use: Never Substance use type: does not use Details: Drinks roughly a 10 every other day Do you feel safe at home: Yes Do you feel safe in your relationship?: Yes Meds Allergies and Home Medications Allergies Allergy/AdvReac Type Severity Reaction Status Date / Time Penicillins Allergy Unknown Unverified 11/30/21 07:41 Home Medications Medication Instructions Recorded Confirmed Type albuterol sulfate 90 mcg/actuation 2 puff inhalation Q6H PRN 02/27/19 11/30/21 Rx aerosol inhaler shortness of breath or wheezing #6.7 grams atorvastatin 10 mg tablet 10 mg PO DAILY 02/04/20 11/30/21 History omega-3 fatty acids 1,000 mg 1,000 mg PO DAILY 02/04/20 11/30/21 History capsule tadalafil 20 mg tablet (Cialis) 20 mg PO DAILY PRN 02/04/20 11/30/21 History trazodone 100 mg tablet 100 mg PO QHS PRN 02/04/20 11/30/21 History venlafaxine 75 mg capsule,extended 75 mg PO DAILY 02/04/20 11/30/21 History release 24 hr venlafaxine 150 mg 150 mg PO DAILY 10/23/21 11/30/21 History capsule,extended release 24 hr tamsulosin 0.4 mg capsule 0.4 mg PO DAILY #90 caps 11/19/21 11/30/21 Rx docusate sodium 100 mg capsule 100 mg PO BID PRN 11/22/21 11/30/21 History cefpodoxime 200 mg tablet 200 mg PO BID #20 tabs 11/25/21 11/30/21 Rx amlodipine 10 mg tablet 1 tab PO DAILY 11/30/21 11/30/21 History Exam Const General: cooperative Neck Neck: supple Resp Effort & Inspection: normal respiratory effort Auscultation: clear to auscultation bilaterally Cardio Rate: regular rate Rhythm: regular rhythm GI Palpation: soft and no masses Neuro General: patient alert and patient awake Results Last Vital Signs Temp 36.5 C 11/30/21 07:53 Pulse 80 11/30/21 07:53 Resp 16 11/30/21 07:53 BP 120/76 11/30/21 07:53 Pulse Ox 97 11/30/21 07:53
--- NOTE | 2021-11-30 10:11 | W.ANESPRE ---
General Info Date of Service Date Performed: 11/30/21 Height: 5 ft 8 in Weight: 92.3 kg Body Mass Index (BMI): 30.9 Surgical Procedure: Operation Date: 11/30/21 08:55 Proposed Procedure Side Surgeon p Cystoscopy/Suprapubic Tube Insertion Kit Warren MD Meds Allergies and Home Medications Allergies Allergy/AdvReac Type Severity Reaction Status Date / Time Penicillins Allergy Unknown Unverified 11/30/21 07:41 Home Medication Medication Instructions Recorded albuterol sulfate 90 mcg/actuation 2 puff inhalation Q6H PRN 02/27/19 aerosol inhaler shortness of breath or wheezing #6.7 grams atorvastatin 10 mg tablet 10 mg PO DAILY 02/04/20 omega-3 fatty acids 1,000 mg 1,000 mg PO DAILY 02/04/20 capsule tadalafil 20 mg tablet (Cialis) 20 mg PO DAILY PRN 02/04/20 trazodone 100 mg tablet 100 mg PO QHS PRN 02/04/20 venlafaxine 75 mg capsule,extended 75 mg PO DAILY 02/04/20 release 24 hr venlafaxine 150 mg 150 mg PO DAILY 10/23/21 capsule,extended release 24 hr tamsulosin 0.4 mg capsule 0.4 mg PO DAILY #90 caps 11/19/21 docusate sodium 100 mg capsule 100 mg PO BID PRN 11/22/21 cefpodoxime 200 mg tablet 200 mg PO BID #20 tabs 11/25/21 amlodipine 10 mg tablet 1 tab PO DAILY 11/30/21 Current Visit Medications: Current Medications Generic Name Dose Route Start Last Admin Trade Name Araceli PRN Reason Stop Dose Admin Ringer's Solution 1,000 mls @ 80 mls/hr 11/30/21 06:00 11/30/21 08:25 IV 11/30/21 23:59 80 mls/hr INFUSION LACI Administration IV Miscellaneous Supplies 1 each 11/30/21 06:00 Iv Access IV 11/30/21 23:59 DIRECTED LACI Sodium Chloride 0 ml 11/30/21 06:00 Normal Saline Flush 10 Ml Syr IV 11/30/21 23:59 PRN PRN Sodium Chloride 0 ml 11/30/21 06:00 Normal Saline 10 Ml Vial IJ 11/30/21 23:59 DIRECTED PRN Sterile Water 0 ml 11/30/21 06:00 Water,Injection,Sterile 10 Ml Vial IJ 11/30/21 23:59 DIRECTED PRN PFSH Active Problems Active Problems: Problem Status Onset Code Bilateral hydronephrosis N13.30 Urinary retention with incomplete bladder emptying R33.9 Complicated UTI (urinary tract infection) N39.0 Acute UTI N39.0 Sepsis A41.9 Hypokalemia E87.6 Serratia infection A49.8 Medical History Medical History Erectile dysfunction Gastritis HLD (hyperlipidemia) HTN (hypertension) Intermittent asthma Lumbar spondylosis Major depression Right lateral epicondylitis Medical History Comments:: Indwelling taylor to leg bag; recent hospitalization at [facility] for infection, discharged 11/25/21 Surgical History Surgical History Bilateral Ureter reimplantation Colonoscopy - MAC (07/14/16) EGD - MAC (07/14/16) History of vasectomy Hx of hernia repair Spinal Fusion L5 Tobacco Smoking/Tobacco Use Status: Never Alcohol Alcohol Intake: current Alcohol intake frequency: 3 or more drinks per day Alcohol type: beer Substance Use Substance use: Never Substance use type: does not use Details: Drinks roughly a 10 every other day Vital Signs and Lab Results Vital Signs Most Recent Vital Signs in EMR: Most Recent Vital Signs Temp Pulse Resp BP Pulse Ox 36.5 C 80 16 120/76 97 11/30/21 07:53 11/30/21 07:53 11/30/21 07:53 11/30/21 07:53 11/30/21 07:53 Lab Results Blood Type / Crossmatch: No Data to Display Complete Blood Count: White Blood Count 5.77 10^3/uL (4.4-10.8) 11/25/21 05:47 Red Blood Count 4.89 10^6/uL (4.36-5.78) 11/25/21 05:47 Hemoglobin 13.5 g/dL (13.5-17.5) 11/25/21 05:47 Hematocrit 41.5 % (40.0-50.0) 11/25/21 05:47 Platelet Count 260 10^3/uL (130-400) 11/25/21 05:47 Venous Blood Lactate 0.8 mmol/L (0.6-1.4) 11/22/21 13:35 Complete Metabolic Panel: Sodium 142 mmol/L (136-145) 11/25/21 05:47 Potassium 3.9 mmol/L (3.5-5.1) 11/25/21 05:47 Chloride 105 mmol/L (98-107) 11/25/21 05:47 Carbon Dioxide 29.1 mmol/L (21.0-32.0) 11/25/21 05:47 BUN 14 mg/dL (7-18) 11/25/21 05:47 Creatinine 1.1 mg/dL (0.70-1.30) 11/25/21 05:47 Est GFR (CKD-EPI 2020) 82.81 (mL/min/1.73m2) 11/25/21 05:47 Magnesium 1.8 mg/dL (1.8-2.4) 11/25/21 05:47 Calcium 9.3 mg/dL (8.5-10.1) 11/25/21 05:47 Albumin 3.6 g/dL (3.4-5.0) 11/22/21 08:30 Glucose 100 mg/dL (74-106) 11/25/21 05:47 Liver Function Panel: Alanine Aminotransferase (ALT/SGPT) 19 U/L (16-63) 11/22/21 08:30 Aspartate Amino Transf (AST/SGOT) 15 U/L (15-37) 11/22/21 08:30 Coagulation Panel: No Data to Display Cardiac Panel: No Data to Display Arterial Blood Gas: No Data to Display Venous Blood Gas: No Data to Display Pancreas Panel: No Data to Display Thyroid Panel: No Data to Display Infectious Disease: Coronavirus (COVID-19)(PCR) Negative (Negative) 11/22/21 08:40 Coronavirus 2019 Source Not Applicable 11/22/21 08:40 Influenza Virus Type A (PCR) Negative (Negative) 11/22/21 08:40 Influenza Virus Type B (PCR) Negative (Negative) 11/22/21 08:40 Respiratory Syncytial Virus (PCR) Negative (Negative) 11/22/21 08:40 Blood Cultures: No Data to Display Toxicology Panel: No Data to Display Anesthesia Assessment and Plan Anesthesia History Personal History: No History of Anesthesia Complications Family History: No Family History of Anesthesia Complications Exercise Tolerance Exercise Tolerance: Metabolic Equivalents>4 Pertinent Negatives Pertinent Negatives: No Symptoms of GERD, No Major Cardiovascular Symptoms or Complaints, No Major Pulmonary Symptoms or Complaints and No History of CVA/TIA Cardiac & Pulmonary Exam Cardiac Exam: Normal S1/S2 Heart Sounds Pulmonary Exam: Clear Bilateral Breath Sounds Implantable Cardiac Device Does patient have a Pacemaker or an ICD?: No Airway Exam Known Difficult Airway: No Mallampati Class: 3 Mouth Opening: Normal (> 3cm) Thyromental Distance: Greater than 3 cm Neck Range of Motion: Full ROM Neck Circumference: Normal Teeth Condition: Normal Dentition ASA Classification ASA Score: ASA 2 Emergency Case?: No NPO Status NPO Status: NPO Clears >2 hours, Solids >8 hours Anesthesia Plan Resuscitation Status: Full Code Anesthesia Technique: General Anesthesia Airway Planned: Natural Airway Monitors Used: Standard Monitors
[2021-11-30] MEDS: Bupivacaine 0.5% Pres-Free 30 ML VIAL (11:10)
[2021-11-30] MEDS: levoFLOXacin 500 MG/100 ML BAG 100 MG IVPB (11:18)
[2021-11-30 11:31] VITALS: BMI 30.9
[2021-11-30] MEDS: Lidocaine 2% Jelly 6 ML SYR (12:13)
--- NOTE | 2021-11-30 12:27 | W.PM.DSUDISC ---
Discharge Plan Disposition Patient Disposition: HOME Condition: Good Discharge Details Reason For Visit: suprapubic tube Attending Provider: Kit Warren Primary Care Provider: Jose Clement Home Meds and New Rx's Prescriptions: No Action tamsulosin 0.4 mg capsule 0.4 mg PO DAILY Qty: 90 4RF trazodone 100 mg tablet 100 mg PO QHS PRN venlafaxine 75 mg capsule,extended release 24hr 75 mg PO DAILY atorvastatin 10 mg tablet 10 mg PO DAILY tadalafil [Cialis] 20 mg tablet 20 mg PO DAILY PRN Rx Instructions: administer approximately 30min before sexual activity; do not use more than 1 dose per 24hrs omega-3 fatty acids 1,000 mg capsule 1,000 mg PO DAILY Label Comments: Pt has been out 11/22/21 venlafaxine 150 mg capsule,extended release 24hr 150 mg PO DAILY Label Comments: 10/22/21- pt takes a 150 mg tab with 75 mg tab daily together for daily dose of 225 mg per pt report. albuterol sulfate 90 mcg/actuation HFA aerosol inhaler 2 puff IH Q6H PRN (Reason: shortness of breath or wheezing) Qty: 6.7 0RF docusate sodium 100 MG capsule 100 mg PO BID PRN cefpodoxime 200 mg tablet 200 mg PO BID Qty: 20 0RF Rx Instructions: must administer with a meal/food Start on 11/26/21 amlodipine 10 mg tablet 1 tab PO DAILY Discharge Instructions Additional Instructions: suprapubic tube to leg bag followup 4 to 6 weeks for catheter change may remove dressing in 24 hours - may then leave area open to air or cover with drain sponge (patient preference) Activity:: Activity as Tolerated Remove Dressings/Wound Care:: 24 hours Shower/Bathe:: 24 hours Diet:: As Tolerated Discharge Orders Discharge Orders: Discharge Order (Routine); Ordered 11/30/21 Ordered By: Kit Warren DS: Diagnosis Discharge Diagnosis (1) Urinary retention with incomplete bladder emptying: Status: Acute (2) Bilateral hydronephrosis: Status: Chronic
--- NOTE | 2021-11-30 12:31 | W.PM.OP ---
Date of service: 11/30/21 Time of Service: 12:32 Operative Note Operative Note DATE OF PROCEDURE: 11/30/21 PRE-OP DIAGNOSIS: Urinary Retention POST-OP DIAGNOSIS: same PROCEDURE: Cystoscopy with insertion of suprapubic tube SURGEON: Kit Warren Refer to Anesthesia Record ESTIMATED BLOOD LOSS: 10 PATHOLOGY: none sent COMPLICATIONS: None Patient was transported to: same day Patient's condition: stable Implants: 16 [place] suprapubic catheter with 10 cc sterile water in balloon Indications: This is a 46-year-old gentleman who was referred by his primary care provider for obstructive uropathy. He had an increasing serum creatinine and a finding of a distended bladder and bilateral hydronephrosis. We initially placed a urethral catheter to allow the bladder and kidneys to decompress. We then switched him over to clean intermittent catheterization. He was unable to comply with CIC and developed an episode of sepsis. He presents now for placement of a suprapubic tube. Findings: no urethral stricture SP tube balloon visible in bladder Procedure Description: The patient was given preoperative IV antibiotics based on his recent positive urine culture. After successful induction of general anesthesia without intubation, he was placed in the dorsal lithotomy position. His lower abdomen and genitalia were prepped and draped. 2% Xylocaine jelly was instilled into the urethra to act as a local anesthetic. An abdominal field block was performed using quarter percent Marcaine. A curved Lowsley tractor was passed through the urethra into the bladder. The tip of the Lowsley retractor was palpable in the suprapubic area. A small incision was made over the tip and we were able to bring at the end of the Lowsley retractor up onto the abdomen. The jaws of the Lowsley retractor were opened and we grasped a 16 Canadian catheter. We pulled the catheter back down through the suprapubic tract, bladder and out the urethra. We withdrew the catheter back into the bladder under cystoscopic guidance. We used a 22 Canadian rigid cystoscope with a 30 degree lens. We did not encounter any urethral strictures or obstructions. Once the catheter was visible in the bladder, the catheter balloon was inflated and the catheter was hooked to gravity drainage. The positioning of the catheter was confirmed cystoscopically. The cystoscope was removed. The patient tolerated the procedure well with no complications.
[2021-11-30 12:35] VITALS: BP 104/73; PULSE 84; RESP 14; TEMP 36.4; O2SAT 95
[2021-11-30 13:15] VITALS: BP 109/68; PULSE 94; RESP 18; TEMP 36.5; O2SAT 94
--- NOTE | 2021-11-30 15:16 | W.ANESPOSTOP ---
Postoperative Evaluation Date, Time and Location Date Performed: 11/30/21 Time Performed: 15:16 Patient Location: Day Surgery Unit Vital Signs Most Recent Imported Vital Signs: Most Recent Vital Signs Temp Pulse Resp BP Pulse Ox 36.5 C 94 H 18 109/68 94 11/30/21 13:15 11/30/21 13:15 11/30/21 13:15 11/30/21 13:15 11/30/21 13:15 Pain Score Most Recent Pain Score: Most Recent Pain Score Pain Level 0 11/30/21 13:15 Assessment Mental Status: Awake (Alert & Oriented to Patient Baseline) Airway and Respiratory Function: Patent airway with normal (patient baseline) respiratory exam Cardiovascular Function: Hemodynamically Stable Hydration Status: Adequately Hydrated Nausea & Vomiting: No Nausea or Vomiting Pain: Pt. Denies Any Pain Peripheral Nerve Block: Patient did not receive a nerve block Postoperative Comments:: Seen earlier today, patient doing well. Denies questions
== END 2021-11-30 14:05 | disposition home or self-care (01) ==
PROVIDERS: PCP Family Medicine; Visit Provider Urology
PROC: (CPT 51102; principal; 2021-11-30 08:45)
DX: R33.9 Retention of urine, unspecified (principal); N13.30 Unspecified hydronephrosis
CPT/HCPCS: 51102; J1956; J2250; J2704; J3010

== ENCOUNTER 2022-09-15 18:02 | Outpatient (REF) | payer MEDICAID, SELFPAY ==
[2022-09-15 19:35] LABS: HCT 51.2 % (40.0-50.0); HGB 17.6 g/dL (13.5-17.5); MCH 29.7 pg (27.0-33.0); MCHC 34.4 % (32.0-36.0); MCV 87 fL (80-95); MPV 10.7 fL (8.0-11.0); Platelet Count 296 10^3/uL (130-400); RBC 5.92 10^6/uL (4.36-5.78); RDW 12.5 % (11.8-14.1); WBC 10.13 10^3/uL (4.4-10.8)
[2022-09-15 19:48] LABS: ALT 41 U/L (16-63); AST 31 U/L (15-37); Albumin 4.2 g/dL (3.4-5.0); Alkaline Phosphatase 135 U/L (46-116); BUN 13 mg/dL (7-18); Bilirubin, Total 0.7 mg/dL (0.2-1.0); CREATININE 1.1 mg/dL (0.70-1.30); Calcium 10.1 mg/dL (8.5-10.1); Chloride 96 mmol/L (98-107); Estimated GFR 82.81 (mL/min/1.73m2); Glucose 89 mg/dL (74-106); Magnesium 1.7 mg/dL (1.8-2.4); Potassium 3.6 mmol/L (3.5-5.1); Sodium 137 mmol/L (136-145); TSH (W/Ref FT4) 1.76 uIU/mL (0.36-3.74); Total Protein 8.1 g/dL (6.4-8.2); Vitamin B12 247 pg/mL (193-986)
[2022-09-15 19:57] LABS: GGT 109 U/L (15-85)
== END 2022-09-15 18:03 | disposition home or self-care (01) ==
LOC: NCHCN 18:02
PROVIDERS: PCP Family Medicine; Visit Provider Family Medicine
DX: F10.10 Alcohol abuse, uncomplicated (principal)
CPT/HCPCS: 80053; 85027; 82607; 82977; 83735; 84443

== ENCOUNTER 2023-08-03 15:20 | Outpatient (REF) | payer MEDICAID, SELFPAY ==
[2023-08-03 19:29] LABS: Abs Immature Grans 0.03 10^3/uL (0.0-0.06); Absolute Basophil Count 0.12 10^3/uL (0.0-0.2); Absolute Eosinophil Count 0.07 10^3/uL (0.0-0.7); Absolute Lymphocyte Count 1.68 10^3/uL (1.2-3.4); Absolute Monocyte Count 0.76 10^3/uL (0.1-0.8); Absolute Neutrophil Count 7.44 10^3/uL (1.2-6.7); Basophils % 1.2 %; Eosinophils % 0.7 %; HCT 49.4 % (40.0-50.0); HGB 17.6 g/dL (13.5-17.5); Immature Grans % 0.3 %; Lymphocytes % 16.6 %; MCH 30.7 pg (27.0-33.0); MCHC 35.6 % (32.0-36.0); MCV 86 fL (80-95); MPV 10.9 fL (8.0-11.0); Monocytes % 7.5 %; Neutrophils % 73.7 %; Platelet Count 276 10^3/uL (130-400); RBC 5.73 10^6/uL (4.36-5.78); RDW 12.6 % (11.8-14.1); RDW-SD 39.4 fL
[2023-08-03 19:59] LABS: ALT 69 U/L (16-63); AST 57 U/L (15-37); Albumin 4.2 g/dL (3.4-5.0); Alkaline Phosphatase 95 U/L (46-116); Anion Gap 11.6 mmol/L (3-11); BUN 3 mg/dL (7-18); Bilirubin, Total 0.72 mg/dL (0.2-1.0); CO2 28.4 mmol/L (21.0-32.0); CREATININE 1.1 mg/dL (0.70-1.30); Calcium 9.7 mg/dL (8.5-10.1); Calculated LDL 83 mg/dL (<100); Chloride 93 mmol/L (98-107); Cholesterol 182 mg/dL (<200); Estimated GFR 82.29 (mL/min/1.73m2); Folate 8.9 ng/mL (8.6-20.0); Glucose 118 mg/dL (74-106); HDL Cholesterol 59 mg/dL (40-60); Magnesium 1.9 mg/dL (1.8-2.4); Potassium 4.2 mmol/L (3.5-5.1); Sodium 133 mmol/L (136-145); Total Protein 8.1 g/dL (6.4-8.2); Triglyceride 202 mg/dL (<150); Vitamin B12 394 pg/mL (193-986)
== END 2023-08-03 15:21 | disposition home or self-care (01) ==
LOC: NCHCN 15:20
PROVIDERS: PCP Family Medicine; Visit Provider Nurse Practitioner Family
DX: F10.20 Alcohol dependence, uncomplicated (principal); E78.5 Hyperlipidemia, unspecified; R79.89 Other specified abnormal findings of blood chemistry
CPT/HCPCS: 80053; 80061; 82607; 82746; 83735; 85025

== ENCOUNTER 2024-01-24 11:17 | Outpatient (REF) | payer MEDICAID, SELFPAY ==
[2024-01-24 14:30] LABS: HCT 47.3 % (40.0-50.0); HGB 15.9 g/dL (13.5-17.5); MCHC 33.6 % (32.0-36.0); MCV 86 fL (80-95); MPV 10.6 fL (8.0-11.0); Platelet Count 375 10^3/uL (130-400); RBC 5.49 10^6/uL (4.36-5.78); RDW 12.8 % (11.8-14.1); RDW-SD 39.9 fL; WBC 9.72 10^3/uL (4.4-10.8)
[2024-01-24 15:19] LABS: ALT 30 U/L (16-63); AST 21 U/L (15-37); Alkaline Phosphatase 101 U/L (46-116); Anion Gap 13.2 mmol/L (3-11); BUN 18 mg/dL (7-18); Bilirubin, Total 0.27 mg/dL (0.2-1.0); CO2 24.8 mmol/L (21.0-32.0); CREATININE 1.4 mg/dL (0.70-1.30); Calcium 9.4 mg/dL (8.5-10.1); Chloride 101 mmol/L (98-107); Estimated GFR 61.23 (mL/min/1.73m2); Glucose 98 mg/dL (74-106); Magnesium 1.9 mg/dL (1.8-2.4); Sodium 139 mmol/L (136-145); TSH 1.89 uIU/mL (0.36-3.74)
[2024-01-24 23:59] LABS: Hepatitis C Ab w Rflx HCV PCR Negative (Negative)
== END 2024-01-24 11:18 | disposition home or self-care (01) ==
LOC: NCHCN 11:17
PROVIDERS: PCP Nurse Practitioner Family; Visit Provider Nurse Practitioner Family
DX: R00.8 Other abnormalities of heart beat (principal); F10.10 Alcohol abuse, uncomplicated; R74.01 Elevation of levels of liver transaminase levels
CPT/HCPCS: 80053; 85027; 86803; 83735; 84443

== ENCOUNTER 2025-01-21 13:12 | Outpatient (REF) | payer MEDICAID, SELFPAY ==
[2025-01-21 16:12] LABS: HCT 39.2 % (40.0-50.0); HGB 13.1 g/dL (13.5-17.5); MCH 27.9 pg (27.0-33.0); MCHC 33.4 % (32.0-36.0); MCV 84 fL (80-95); MPV 10.6 fL (8.0-11.0); Platelet Count 323 10^3/uL (130-400); RBC 4.69 10^6/uL (4.36-5.78); RDW 13.3 % (11.8-14.1); RDW-SD 40.2 fL; WBC 7.29 10^3/uL (4.4-10.8)
[2025-01-21 16:31] LABS: ALT 19 U/L (10-49); AST 17 U/L (<34); Albumin 4.5 g/dL (3.2-5.0); Alkaline Phosphatase 107 U/L (46-116); Anion Gap 10.6 mmol/L (3-11); BUN 28 mg/dL (9-23); Bilirubin, Total 0.20 mg/dL (0.2-1.2); CO2 25.4 mmol/L (20.0-31.0); Calcium 10.7 mg/dL (8.3-10.6); Chloride 103 mmol/L (98-107); Glucose 208 mg/dL (74-106); Potassium 4.0 mmol/L (3.5-5.1); Sodium 139 mmol/L (136-145); Total Protein 7.8 g/dL (5.7-8.2)
[2025-01-21 16:33] LABS: Vitamin B12 390 pg/mL (211-911)
== END 2025-01-21 13:13 | disposition home or self-care (01) ==
LOC: NCHCN 13:12
PROVIDERS: PCP Nurse Practitioner Family; Visit Provider Nurse Practitioner Family
DX: I10 Essential (primary) hypertension (principal); F10.10 Alcohol abuse, uncomplicated
CPT/HCPCS: 80053; 85027; 82607